=== PATIENT | male | born 1940 | race Caucasian/White ===

== ENCOUNTER 2016-06-05 23:52 | Emergency (ER) | payer MEDICARE, BC ==
--- NOTE | ~2016-06-05 | EKG ---
PATIENT: KELLY CHENG UNIT #: [id number] Ventricular Rate: 59 BPM Atrial Rate: 59 BPM P-R Interval: 176 ms QRS Duration: 104 ms Q-T Interval: 446 ms QTC Calculation(Bezet): 441 ms P [place]: 29 degrees Calculated R [place]: 16 degrees Calculated T [place]: 54 degrees Diagnosis Line: Sinus bradycardia Diagnosis Line: Otherwise normal ECG Diagnosis Line: No previous ECGs available Diagnosis Line: Confirmed by SOLIS ARSHAD MD ([id number]) on Diagnosis Line: 06/08/2016 4:01:57 PM INTERPRETING MD: JEANCARLOS ALTAMIRANO
--- NOTE | ~2016-06-05 | CT71 ---
[facility] A Service of [facility] RADIOLOGY TEXT RESULTS PATIENT: KELLY CHENG LOCATION: [facility] : 38 UNIT #: [id number] AGE: [address]: Timothy Wilson MD SEX: M ORDER DR: [id number] [facility] [address] [place], [place] [address] [id number] E MR#: [id number] [facility] #: [id number] NAME: KELLY CHENG. : 1940 SEX: M STUDY DATE/TIME: 06/06/2016 01:56 UNIT: [facility] ROOM: STUDY DESCRIPTION: CT Head Wo Contrast Attending Physician: Timothy Wilson M.D. Ordering Physician: Timothy Wilson M.D. Primary Care Physician: Janine Stanley M.D. MEDICAL IMAGING REPORT This report is preliminary unless electronic signature is present EXAM Head CT, 06/06 at 01:56 INDICATION Shaking, tremors that started at 8 o'clock last night with associated left side headache. TECHNIQUE This CT exam was performed with one or more of the following radiation dose reduction techniques: automatic exposure control, adjustment of mA and/or kV according to patient size, and iterative reconstruction. COMPARISON No comparison. FINDINGS Axial images were obtained from the base to the vertex without contrast. There is generalized atrophy. Ventricular size and configuration are within normal limits. Advanced chronic small vessel ischemic changes are present in the white matter. Old lacunar infarcts are noted in the basal ganglia on both sides as well as in the left thalamus. No acute infarct or hemorrhage is seen. There are no masses. Atherosclerotic calcifications are present in the carotid siphons. No skull fracture is seen. Visualized paranasal sinuses and mastoid air cells are clear. IMPRESSION No acute findings in the brain. There is generalized atrophy with advanced chronic small vessel ischemic disease in the white matter. There are old lacunar infarcts in both basal ganglia and in the left thalamus. Dictated by... Timothy Dao Jr., M.D. [facility] A Service of [facility] RADIOLOGY TEXT RESULTS PATIENT: KELLY CHENG [id number] : 38 UNIT #: [id number] AGE: [address]: Timothy Wilson MD SEX: M ORDER DR: THIS IS AN ELECTRONICALLY VERIFIED REPORT Timothy Dao Jr., M.D. at 06/06/2016 9:32 PM Barry TD: 06/06/2016 16:17 JOB #: [id number] MEDICAL IMAGING REPORT COPY
[~2016-06-05 23:52] MED LIST: ASCORBIC ACID500 M2 PO; B COMPLEX1 TAB PO; BUFFERIN 81 MG81 MG PO; CALCIUM 600 + D1 TAB PO; GLUCOSAMINE 1,51 CA1 PO; METOPROLOL TAR25 MG PO; NORVASC PO; RENAL SOFTGEL1 MG PO; SIMVASTATIN40 MG PO; SODIUM BICARBO650 MG PO; STOOL SOFTENER PO; [UNRECOGNIZED DRUG - OTHER] PO
[2016-06-06 00:13] LABS: POC - CKMB <1.0 ng/mL (0.0-7.9); POC - TROPONIN <0.05 ng/mL (<=0.05)
[2016-06-06 00:40] LABS: BASOPHIL# 0.1 X10e3 (0-0.3); EOSINOPHIL# 0.2 X10e3 (0-0.7); EOSINOPHIL% 3.1 % (0.0-7.0); HEMATOCRIT 38.3 % (38.0-50.0); HEMOGLOBIN 12.8 gm/dL (13.0-16.0); LYMPHOCYTE# 1.7 X10e3 (1.0-3.5); LYMPHOCYTE% 31.8 % (17.0-45.0); MEAN CELL VOLUME 96.7 FL (83-96); MEAN CORPUSCULAR HEMOGLOBIN 32.3 PG (28-34); MEAN CORPUSCULAR HGB CONC 33.4 g/dL (30-36); MEAN PLATELET VOLUME 7.6 FL (6.5-11.5); MONOCYTE# 0.6 X10e3 (0-1.0); MONOCYTE% 11.9 % (3.0-12.0); NEUTROPHIL# 2.8 X10e3 (1.5-7.1); NEUTROPHIL% 52.2 % (40-75); PLATELET COUNT 135 X10e3 (140-420); RED BLOOD COUNT 3.96 X10e (3.90-5.60); RED CELL DISTRIBUTION WIDTH 15.7 % (11.0-15.5); WHITE BLOOD COUNT 5.3 X10e3 (4.0-10.5)
[2016-06-06 00:41] LABS: DIFF IND NO
[2016-06-06 00:48] LABS: PARTIAL THROMBOPLASTIN TIME 25.5 SECONDS (23.5-31.3); PROTHROMBIN TIME (PATIENT) 10.4 SECONDS (9.6-11.5)
[2016-06-06 01:19] LABS: BILIRUBIN, DIRECT 0.1 mg/dL (0.0-0.2); BILIRUBIN,INDIRECT 0.9 mg/dL (0.0-0.9); BUN/CREATININE RATIO 17.05; CALCIUM SERUM 9.3 mg/dL (8.4-10.2); CREATININE SERUM 1.7 mg/dL (0.6-1.4); GLOM FILT RATE Estimated 41.6 mL/min (>60); POTASSIUM 3.4 mmol/L (3.5-5.1); PROTEIN TOTAL SERUM 6.9 g/dL (6.0-8.3)
[2016-06-06 01:27] LABS: MAGNESIUM 2.3 mg/dL (1.6-3.0); PHOSPHOROUS 3.5 mg/dL (2.5-4.6)
[2016-06-06 02:31] LABS: URINE SOURCE CLEAN CATCH
[2016-06-06 02:52] LABS: URINE APPEARANCE CLEAR; URINE BILIRUBIN NEG (NEG); URINE BLOOD NEG (NEG); URINE COLOR YELLOW; URINE GLUCOSE NEG (NEG); URINE KETONE NEG (NEG); URINE LEUKOCYTE ESTERASE NEG (NEG); URINE NITRATE NEG (NEG); URINE PROTEIN 2+ (NEG); URINE SPECIFIC GRAVITY 1.018 (1.003-1.035); URINE UROBILINOGEN 0.2 MG/DL (NEG)
[2016-06-06 02:57] LABS: URBCS1 AUWI 0-2 /[HPF] (0-2); URINE BACTERIA AUWI NEG (NEGATIVE); URINE SQUAMOUS EPITHELIAL CELL NONE SEEN /[HPF]; UWBCS1 AUWI 0-2 (0-5)
[2016-06-06 02:58] LABS: CULTURE INDICATED? NO
[2016-06-09 06:25] LABS: CALCIUM (PTHINTACT) 9.6 mg/dL (8.6-10.3)
== END 2016-06-06 02:51 | disposition home or self-care (01) ==
LOC: CED 23:52
PROVIDERS: Emergency Medicine
DX: G25.2 Other specified forms of tremor (principal); I48.91 Unspecified atrial fibrillation
CPT/HCPCS: 36415; 70450; 80048; 80076; 81003; 82310; 82330; 82550; 82553; 83735; 83970; 84100; 84484; 85025; 85610; 85730; 93005; 96360; 99284

== ENCOUNTER 2016-08-29 06:27 | Inpatient (IN) | payer MEDICARE, BC ==
--- NOTE | ~2016-08-29 | EKG ---
PATIENT: KELLY CHENG UNIT #: [id number] Ventricular Rate: 70 BPM Atrial Rate: 70 BPM P-R Interval: 152 ms QRS Duration: 100 ms Q-T Interval: 472 ms QTC Calculation(Bezet): 509 ms P [place]: 36 degrees Calculated R [place]: 48 degrees Calculated T [place]: 45 degrees Diagnosis Line: Normal sinus rhythm Diagnosis Line: Nonspecific ST and T wave abnormality Diagnosis Line: Prolonged QT Diagnosis Line: Abnormal ECG Diagnosis Line: When compared with ECG of 29-AUG-2016 19:10, Diagnosis Line: (unconfirmed) Diagnosis Line: Premature ventricular complexes is no longer Diagnosis Line: Present Diagnosis Line: Confirmed by CAMPOS RIOS MD ([id number]) on Diagnosis Line: 08/31/2016 5:23:30 PM INTERPRETING MD: ELA
--- NOTE | ~2016-08-29 | EKG ---
PATIENT: KELLY CHENG UNIT #: [id number] Ventricular Rate: 76 BPM Atrial Rate: 76 BPM P-R Interval: 156 ms QRS Duration: 98 ms Q-T Interval: 430 ms QTC Calculation(Bezet): 483 ms P [place]: 35 degrees Calculated R [place]: 48 degrees Calculated T [place]: 57 degrees Diagnosis Line: Sinus rhythm with with PVC's Diagnosis Line: Prolonged QT Diagnosis Line: Abnormal ECG Diagnosis Line: When compared with ECG of 29-AUG-2016 14:12, Diagnosis Line: (unconfirmed) Diagnosis Line: PVC's present Diagnosis Line: Confirmed by CAMPOS RIOS MD ([id number]) on Diagnosis Line: 08/31/2016 5:21:45 PM INTERPRETING MD: ELA
--- NOTE | ~2016-08-29 | EKG ---
PATIENT: KELLY CHENG UNIT #: [id number] Ventricular Rate: 81 BPM Atrial Rate: 81 BPM P-R Interval: 154 ms QRS Duration: 104 ms Q-T Interval: 424 ms QTC Calculation(Bezet): 492 ms P [place]: 14 degrees Calculated R [place]: 37 degrees Calculated T [place]: 52 degrees Diagnosis Line: Normal sinus rhythm Diagnosis Line: Nonspecific ST abnormality Diagnosis Line: Prolonged QT Diagnosis Line: Abnormal ECG Diagnosis Line: When compared with ECG of 31-AUG-2016 06:06, Diagnosis Line: No significant change was found Diagnosis Line: Confirmed by CAMPOS RIOS MD ([id number]) on Diagnosis Line: 09/04/2016 9:46:33 AM INTERPRETING : ELA
--- NOTE | ~2016-08-29 | CR6 ---
[facility] A Service of [facility] RADIOLOGY TEXT RESULTS PATIENT: KELLY CHENG LOCATION: [facility] - : 38 UNIT #: [id number] AGE: [address]: Seema Jefferson MD SEX: M ORDER DR: [id number] [facility] [address] [place], [place] [address] [id number] I MR#: [id number] Acc #: [id number] NAME: KELLY CHENG. : 1940 SEX: M STUDY DATE/TIME: 09/08/2016 6:19 UNIT: [address] ROOM: [facility] STUDY DESCRIPTION: CR Abdomen Portable Sng View Attending Physician: Seema Jefferson M.D. Ordering Physician: Seema Jefferson M.D. Primary Care Physician: Janine Stanley M.D. MEDICAL IMAGING REPORT This report is preliminary unless electronic signature is present EXAM Portable abdomen, 09/08/2016 HISTORY Dobbhoff tube placement today. COMPARISON Abdomen, 09/06/2016 FINDINGS Frontal supine abdomen demonstrates a weighted enteric feeding tube with tip projecting over the mid body of the stomach. Visualized bowel gas pattern nonobstructive. IMPRESSION Weighted enteric feeding tube tip projects over the mid body of the stomach. Dictated by... Phil Alicia M.D. THIS IS AN ELECTRONICALLY VERIFIED REPORT Phil Alicia M.D. at 09/08/2016 3:24 PM Victorino TD: 09/08/2016 08:24 JOB #: [id number] MEDICAL IMAGING REPORT Page 1 of 1 COPY
--- NOTE | ~2016-08-29 | CR72 ---
[facility] A Service of [facility] RADIOLOGY TEXT RESULTS PATIENT: KELLY CHENG LOCATION: [place] [address] : 38 UNIT #: [id number] AGE: [address]: Parminder Sandoval MD SEX: M ORDER DR: [id number] [facility] [address] [place], [place] [address] [id number] I MR#: [id number] Acc #: [id number] NAME: KELLY CHENG. : 1940 SEX: M STUDY DATE/TIME: 09/01/2016 4:31 UNIT: [facility] ROOM: [facility] STUDY DESCRIPTION: CR Chest Single View Portable Attending Physician: Parminder Sandoval M.D. Ordering Physician: Stephon Liu M.D. Primary Care Physician: Janine Stanley M.D. MEDICAL IMAGING REPORT This report is preliminary unless electronic signature is present EXAM Portable chest INDICATION Respiratory failure PROCEDURE Frontal view chest COMPARISON 08/31/2016 FINDINGS Probably stable heart size. Persistent vascular congestion, perihilar opacity and bilateral pleural effusions. The ET tube is unchanged. There is no pneumothorax. IMPRESSION Stable when allowing for differences in technique. Dictated by... Deon Degroot M.D. THIS IS AN ELECTRONICALLY VERIFIED REPORT Deon Degroot M.D. at 09/01/2016 10:13 PM RENEE/yvette TD: 09/01/2016 10:06 JOB #: [id number] MEDICAL IMAGING REPORT Page 1 of 1 COPY
--- NOTE | ~2016-08-29 | DS ---
Unit #: [id number] #: [id number] Patient: KELLY CHENG [id number] [address] [address] [id number] I MR#: [id number] NAME: KELLY CHENG ROOM: 328 Age: 76 Sex: M Admission Date: 08/29/2016 : 1940 Discharge Date: 09/13/2016 Attending Physician: Seema Jefferson M.D. Primary Care Physician: Janine Stanley M.D. DISCHARGE SUMMARY FINAL DIAGNOSES 1. Acute hypoxic respiratory failure with history of intubation during hospitalization. Patient has been extubated and is doing well. 2. Bilateral pneumonia. 3. Diastolic congestive heart failure. 4. Left ventricular ejection fraction of 55%. 5. Severe mitral regurgitation. 6. Acute non-Q wave myocardial infarction. 7. Paroxysmal atrial fibrillation. 8. Streptococcus viridans bacteremia. 9. Mitral valve endocarditis. 10. Sgeme-cq-ujeaxps kidney disease. 11. Urinary retention, status post dilatation for urethral stricture with a catheter in place. 12. Hypokalemia. 13. Anemia. 14. Obstructive sleep apnea, on CPAP as tolerated. 15. History of dementia. 16. Benign prostatic hypertrophy. 17. Former smoker. DISCHARGE MEDICATIONS 1. Metoprolol 50 mg p.o. t.i.d. 2. Aricept 10 mg daily. 3. Simvastatin 20 mg daily. 4. Aspirin 81 mg daily. 5. Renvela 800 mg q.6 h. Must be diluted in 30 mL of water. Stir vigorously to suspend powder. 6. Protonic 40 mg daily. 7. Albuterol and ipratropium nebulizer treatment q.i.d. and q.4 h. p.r.n. 8. Tylenol 650 q.4 h. p.r.n. 9. Lovenox 40 mg subcu daily. 10. Ambien 2.5 mg q.h.s. p.r.n. for sleeping. 11. Cardizem 60 mg q.6 h. 12. Potassium 40 mEq q.12 h. Hold potassium for level more than 4.5. 13. IV ceftriaxone 2 g q.24 h. till 09/25/16. CONSULTATIONS DURING HOSPITALIZATION 1. Dr. Ramos from urology services. 2. Dr. Galan and Dr. Lafleur from cardiology services. 3. Dr. Epps from renal services. 4. Dr. Nigel Rivera from pulmonary services. Unit #: [id number] #: [id number] Patient: KELLY CHENG 5. Dr. Beaver from infectious disease services. DIAGNOSTIC STUDIES LABORATORY WORKUP: On discharge sodium 141, potassium 4.3, chloride 112, BUN 33, creatinine 1.9, calcium 8.5. CBC shows WBC 4.8, hemoglobin 8.3, hematocrit 26.1 and platelet count of 139. Occult blood in the stool was negative. C. diff in the stool was negative. IMAGING: Please note patient has had multiple imaging studies during hospitalization as he was intubated and has had a lengthy stay. Most recent studies done: CT scan of the head without contrast was done today, this morning, because of the fall. Patient has a hematoma on the right forehead. There was no definite acute intracranial abnormality identified. Severe generalized atrophy with evidence of chronic microvascular disease and old left thalamic and lacunar infarct has been seen, right frontal scalp hematoma. Shoulder x-ray was also done which shows mild AC joint arthropathy. No acute finding. HOSPITAL COURSE Mr. Kelly Cheng is a 76-year-old male who has had very lengthy stay, was admitted on August [address] Sandoval with acute respiratory failure. Patient was admitted to ICU and he stayed in ICU for a long period of time. Started on broad spectrum IV antibiotics. Dr. Nigel Rivera evaluated the patient. Vent support was done per his recommendation for adequate oxygenation and ventilation. Bicarb drip was also started for metabolic acidosis. Patient has completed the course of antibiotic for pneumonia. His oxygenation has improved. Patient is being discharged to rehab. Patient was seen by Cardiology for possible congestive heart failure. This was a new onset heart failure. Patient does have history of paroxysmal atrial fibrillation. Patient was diagnosed with acute non-Q CA. Diuretics were adjusted. Patient is forced to have cardiac cath done but the patient's had decided to wait until he has completed the course of antibiotic. The patient did have mitral valve vegetation. Patient is on IV Rocephin. Infectious Disease was consulted and antibiotic has been adjusted as per his recommendation. He will continue to need antibiotic till 09/25/2016. Patient has an appointment with Dr. Galan on November 09 at 12:30. Patient needs to be on Lovenox 40 mg subcu daily. He was on 80 mg but because of low hemoglobin that dose has been decreased. On admission patient did have urinary retention and urethral stricture. Dr. Ramos was consulted. Patient had dilatation done and catheter placed. As per urology recommendation, leave current catheter until fully ambulatory and improved. When catheter is removed close followup of voiding needs to be done. Patient did have obcmp-fr-vbskcvm kidney disease. Dr. Epps was consulted. Patient's renal functions have improved a lot. On September 06 the patient's BUN was 99 and creatinine was 1.9. On discharge the patient's BUN is 33 and creatinine 1.9. Need to continue to monitor his renal functions. Patient does need to continue fall precaution. Unit #: [id number] #: [id number] Patient: KELLY CHENG PHYSICAL EXAMINATION VITAL SIGNS: On discharge blood pressure is 127/67, respiratory rate 18, pulse is 59, temperature 98.1, oxygen saturation is 97%. CHEST: Has fair air entry. CVS: S1 and S2 positive. Regular rhythm. ABDOMEN: Soft. Patient does have right scalp hematoma and ecchymosis. DISCHARGE INSTRUCTIONS 1. Patient is being discharged home to rehab in stable condition. 2. Medication as per med rec. 3. Antibiotic IV Rocephin till 09/25/16. 4. Follow up with Dr. Galan November 09 at 12:30. 5. CBC and BMP in three days and continue to check potassium level and renal functions. As patient is on potassium that needs to be observed closely. 6. PT and OT at rehab. 7. Fall precautions. 8. Aspiration precaution. Dictated by... Seema Jefferson M.D. ZEINA/matthew TD: 09/13/2016 16:07 JOB #: [id number] DISCHARGE SUMMARY Page 1 of 1 X Seema Jefferson MD X DISCHARGE SUMMARY
--- NOTE | ~2016-08-29 | CO ---
Unit #: [id number] #: [id number] Patient: KELLY CHENG [id number] [address] [place], [place] [address] [id number] I MR#: [id number] NAME: KELLY CHENG. ROOM: [facility] Age: 76 Sex: M Admission Date: 08/29/2016 : 1940 Attending Physician: Parminder Sandoval M.D. Primary Care Physician: Janine Stanley M.D. CONSULTATION REPORT REASON FOR CONSULTATION Congestive heart failure. HISTORY OF PRESENT ILLNESS This is a 76-year-old white male, who is known to Dr. Galan, who has a history of hypertension, hyperlipidemia, and bbasnmlw-hs-mcurkp mitral regurgitation that was found on echocardiogram in 2015. He has paroxysmal atrial fibrillation and is on anticoagulation with Eliquis. The patient presents to the emergency room with shortness of breath. He has dementia and is intubated; therefore, information has been obtained from the son, who is at bedside. According to the son for the past 2 days, the patient has been short of breath. Last night, his tried to convince him to come to the emergency room, but he declined. This morning at approximate 05:15 he was having such a hard time breathing, then EMS was eventually called. The son states his oxygen saturation level was low in the 60s. He was transferred to the emergency room. In the emergency room, the patient remained hypoxic and was subsequently intubated. The son also said the patient has not been eating as well as he should lately and has complained of being tired. Otherwise, no chest pain, palpitations, or dizziness. He had no leg edema. Chest x-ray found the patient to have pulmonary edema. After intubation, he was hypotensive and was placed on Levophed drip. Lactic acid elevated at 14.8. Troponin is 0.37. He is known to have anemia and his hemoglobin was 7.3. He was also found to be in acute kidney injury on chronic kidney disease, where his creatinine was also elevated at 2.8. PAST MEDICAL HISTORY 1. 2D echocardiogram on 01/05/2016 shows an ejection fraction of 60% with mild concentric left ventricular hypertrophy. Nllkfock-qc-wrjkix mitral regurgitation, rfgj-dw-dggzhnvl tricuspid regurgitation, and fxil-oa-cihhzzfh pulmonic valve regurgitation. Right ventricular systolic pressure of 32 mmHg. 2. Adenosine Cardiolite stress test on 01/27/2009 shows an ejection fraction of 50%. There was artifact attenuation in inferior wall, but no ischemia. 3. Pericarditis questionable secondary to hydralazine. 4. Paroxysmal atrial fibrillation, on anticoagulation with Eliquis. 5. Hypertension. 6. Hyperlipidemia. 7. Obstructive sleep apnea. 8. Chronic kidney disease. 9. Anemia. 10. Dementia. 11. BPH. Unit #: [id number] #: [id number] Patient: KELLY CHENG 12. Former smoker. PAST SURGICAL HISTORY 1. Cholecystectomy. 2. Tonsillectomy. 3. TURP. 4. Appendectomy. 5. Bilateral cataract extraction. 6. Prostate surgery. SOCIAL HISTORY The patient lives with and is cared for by his mother. He quit smoking more than 30 years ago. There is no history of illicit drug or alcohol use. FAMILY HISTORY Noncontributory. ALLERGIES Augmentin, amoxicillin, hydralazine. HOME MEDICATIONS Atrovent nasal spray 2 sprays each nostril q.i.d. p.r.n., amlodipine 5 mg daily, Eliquis 2.5 mg b.i.d., Lopressor 50 mg b.i.d., Aricept 10 mg daily, simvastatin 20 mg daily, ProAir HFA 90 mcg q.i.d. p.r.n. REVIEW OF SYSTEMS Unable to obtain, because the patient is currently intubated. PHYSICAL EXAMINATION VITAL SIGNS: Blood pressure is 156/68, heart rate is 106, temperature 98.9, BMI 22. GENERAL: This is a well-developed 76-year-old elderly white male, who is in no acute respiratory distress. He is currently intubated. NECK: Trachea is midline. No thyromegaly or lymphadenopathy. He has jugular venous distention of 5 cm. HEART: S1 and S2. Heart sounds are distant. No murmurs. No rubs or clicks. Regular rate and rhythm. LUNGS: With crackles in both lung bases with diminished breath sounds throughout. ABDOMEN: Soft and nontender with bowel sounds are diminished. EXTREMITIES: Without leg edema. SKIN: Pale and dry. DIAGNOSTIC STUDIES LABORATORY RESULTS: Glucose 287, BUN 45, creatinine 2.8, sodium 138, potassium 4.1. CK total 217, troponin 3.20 from 0.37. BNP, pending. Lactic acid 14.8. White count 23.0, hemoglobin 7.3, hematocrit 26.2, and platelet count is 263. IMAGING STUDIES: Chest x-ray consistent with pulmonary edema. CARDIOVASCULAR STUDIES: EKG; sinus tachycardia with a rate of 131 beats per minute with [address] depression in the lateral leads up to 2 mm. IMPRESSION 1. Acute hypoxic respiratory failure. 2. Acute on chronic kidney disease. Unit #: [id number] #: [id number] Patient: KELLY CHENG 3. Acute new onset heart failure. 4. Paroxysmal atrial fibrillation, currently in normal sinus rhythm. 5. Anemia questionable of chronic disease. 6. Transient hypotension. 7. Hyperlipidemia. 8. Dementia. 9. Valvular heart disease with waumhkcy-co-ivinpj mitral regurgitation and yfvs-ve-ymrharux tricuspid regurgitation. PLAN 1. Cardiology was consulted for questionable congestive heart failure. The patient had normal left ventricular systolic function with no evidence of heart failure on past echoes. His ejection fraction was normal. He had pjfzdpqy-cg-gzrfcc mitral regurgitation. The severity of the mitral valve could have worsened. We will recheck a 2D echocardiogram. 2. Continue to monitor troponin. We will discuss with the family about plans in the future. 3. Ventilator support. 4. Wean dopamine as blood pressure tolerates. 5. We will follow the patient with you. Thank you for allowing us to assist with this patient's care. Dictated by... Nael Toney/alison TD: 08/30/2016 01:50 JOB #: [id number] CC: Janine Stanley M.D. CONSULTATION REPORT Page 1 of 1 X Flavio Meyers APRN X CONSULTATION REPORT
--- NOTE | ~2016-08-29 | CR170 ---
[facility] A Service of [facility] RADIOLOGY TEXT RESULTS PATIENT: KELLY CHENG LOCATION: [facility] - : 38 UNIT #: [id number] AGE: [address]: Seema Jefferson MD SEX: M ORDER DR: [id number] [facility] [address] [place], [place] [address] [id number] I MR#: [id number] Acc #: [id number] NAME: KELLY CHENG. : 1940 SEX: M STUDY DATE/TIME: 09/12/2016 10:16 UNIT: [address] ROOM: [facility] STUDY DESCRIPTION: CR Knee 2 Views Rt Attending Physician: Seema Jefferson M.D. Ordering Physician: Seema Jefferson M.D. Primary Care Physician: Janine Stanley M.D. MEDICAL IMAGING REPORT This report is preliminary unless electronic signature is present EXAM Right knee 2 views, 09/12/2016 COMPARISON STUDIES None. HISTORY Fell yesterday with knee pain. FINDINGS AP and lateral views are obtained. Bony elements are intact and in normal aligned with no fractures identified. The patient does have advanced atherosclerotic disease in the popliteal and distal superficial femoral artery and trifurcation vessels. CONCLUSION Negative right knee. Dictated by... Giacomo Lewis M.D. THIS IS AN ELECTRONICALLY VERIFIED REPORT Giacomo Lewis M.D. at 09/16/2016 7:15 AM KIARRA/bernard TD: 09/12/2016 20:25 JOB #: [id number] MEDICAL IMAGING REPORT Page 1 of 1 COPY
--- NOTE | ~2016-08-29 | CR7 ---
[facility] A Service of [facility] RADIOLOGY TEXT RESULTS PATIENT: KELLY CHENG LOCATION: [address] : 38 UNIT #: [id number] AGE: [address]: Seema Jefferson MD SEX: M ORDER DR: [id number] [facility] [address] [place], [place] [address] [id number] I MR#: [id number] Acc #: [id number] NAME: KELLY CHENG. : 1940 SEX: M STUDY DATE/TIME: 09/06/2016 16:12 UNIT: [facility] ROOM: [facility] STUDY DESCRIPTION: CR Abdomen Single AP View Attending Physician: Seema Jefferson M.D. Ordering Physician: Seema eJfferson M.D. Primary Care Physician: Janine Stanley M.D. MEDICAL IMAGING REPORT This report is preliminary unless electronic signature is present EXAM Portable abdomen HISTORY Dobbhoff tube placement. FINDINGS Portable radiograph of the abdomen for Dobbhoff tube placement demonstrates the feeding tube tip is at the level of the gastric fundus, 5 cm beyond the EG junction. The tube could be advanced an additional 10-15 cm for improved positioning in the stomach. The visualized bowel gas pattern is normal. Exam does not include the left lateral abdomen or the mid- and lower pelvis. Dictated by... Leander Carlos M.D. THIS IS AN ELECTRONICALLY VERIFIED REPORT Leander Carlos M.D. at 09/06/2016 11:50 PM DFL/pcl TD: 09/06/2016 21:01 JOB #: [id number] MEDICAL IMAGING REPORT Page 1 of 1 COPY
--- NOTE | ~2016-08-29 | FU ---
[facility] Nutrition Therapy DATE: 09/09/16 Patient: KELLY CHENG Physician: PAM Address: [address] Room/Bed: [address] [place] [address], Zip: [place] [address] Admit Date: 08/29/16 Date of : 38 Height: 6 2 Weight: 155 70.6 NUTRITION MONITORING/FOLLOW-UP: Reason: FOLLOW UP Anthropometrics: Wt: 70.6 kg Labs: BUN 57 Creat 1.7 Accuchecks 103-109 GFR 37.8 Meds: Lopressor, lipitor, novolog, protonix, NaCl I&O's: , last BM 09/09 Skin: Bruising BUE Redness to buttocks No edema noted Diet: Mechanical soft with ground meats/ NDD2/ thin liquids Assessment: Chart reviewed, events noted. Pt's diet advanced and enteral nutrition was discontinued yesterday. RN reports that the pt is eating well. RD spoke with the pt and his at bedside. Pt's reports that he has been consuming ~50% of meals and 50% of Ensure supplements. RD encouraged increased intake of solid food, and supplement intake when intake of solid food is inadequate. Pt and his agreed, and denied having any questions regarding the pt's diet. Of note, the pt has been feeding himself today. Renal function is improving per labs and RN report. Nutrition problem remains with improvements. See updated evidence. Dx: Inadequate protein-energy intake RT clinical diagnosis AEB 50% intake of meals, CARDIAC EXERCISE PHYSIOLOGIST evaluation- ACTIVE/ IN PROGRESS Intervention: 1. Ensure vanilla BID 2. Diet per CARDIAC EXERCISE PHYSIOLOGIST Monitoring, Evaluation and Goals: 1. EN- NO LONGER RELEVANT (TFS D/C'D) 2. Oral intake- Improved/ In progress NEW GOALS: [facility] Nutrition Therapy DATE: 09/09/16 Patient: KELLY CHENG Physician: PAM Address: [facility] Room/Bed: [address] [place] [address], Zip: [place] [address] Admit Date: 08/29/16 Date of : 38 Height: 6 2 Weight: 155 70.6 1. Oral intake; tolerate >50% of meals and supplements 2. Weight; prevent unintentional weight loss 3. Improve labs; BUN, creat, GFR Recommendations: 1. Continue to advance diet per CARDIAC EXERCISE PHYSIOLOGIST recommendations. 2. Continue Ensure vanilla BID for supplemental nutrition. 3. Appreciate staff and family encouraging and assisting with intake as needed. Status: Pt is at mild nutritional risk. RD will follow per protocol. Respectfully, AMARILIS HELTON RD, LD Food and Nutritional Services [facility] cc: client file
--- NOTE | ~2016-08-29 | CR72 ---
[facility] A Service of [facility] & [facility] RADIOLOGY TEXT RESULTS PATIENT: KELLY CHENG LOCATION: [place] [address] : 38 UNIT #: [id number] AGE: [address]: Parminder Sandoval MD SEX: M ORDER DR: [id number] [facility] [address] [facility]. [place], [place] [address] [id number] I MR#: [id number] Acc #: [id number] NAME: KELLY CHENG. : 1940 SEX: M STUDY DATE/TIME: 08/31/2016 3:19 UNIT: [facility] ROOM: [facility] STUDY DESCRIPTION: CR Chest Single View Portable Attending Physician: Parminder Sandoval M.D. Ordering Physician: Stephon Liu M.D. Primary Care Physician: Janine Stanley M.D. MEDICAL IMAGING REPORT This report is preliminary unless electronic signature is present EXAM Portable chest INDICATION Respiratory failure PROCEDURE Frontal view chest COMPARISON 08/30/2016 FINDINGS Heart size unchanged. Perihilar opacities are stable. Bilateral pleural effusions are new or increased from the prior. ET tube unchanged. No visualized pneumothorax. IMPRESSION Small bilateral pleural effusions are new compared with the previous study. Otherwise stable. Dictated by... Deon Degroot M.D. THIS IS AN ELECTRONICALLY VERIFIED REPORT Deon Degroot M.D. at 08/31/2016 9:53 PM RENEE/yvette TD: 08/31/2016 08:58 JOB #: [id number] MEDICAL IMAGING REPORT Page 1 of 1 COPY
--- NOTE | ~2016-08-29 | CR230 ---
[facility] A Service of [facility] & [facility] RADIOLOGY TEXT RESULTS PATIENT: KELLY CHENG LOCATION: [facility] : 38 UNIT #: [id number] AGE: [address]: Seema Jefferson MD SEX: M ORDER DR: [id number] [facility] [address] [facility] [address]. [place], [place] [address] [id number] I MR#: [id number] Acc #: [id number] NAME: KELLY CHENG. : 1940 SEX: M STUDY DATE/TIME: 09/13/2016 6:20 UNIT: [address] ROOM: [facility] STUDY DESCRIPTION: CR Shoulder Min 2 View Rt Attending Physician: Seema Jefferson M.D. Ordering Physician: Parminder Sandoval M.D. Primary Care Physician: Janine Stanley M.D. MEDICAL IMAGING REPORT This report is preliminary unless electronic signature is present EXAM Right shoulder 3 views. HISTORY Fell out of bed this morning. Shoulder pain. FINDINGS Three views of the right shoulder demonstrates no fracture or dislocation. Mild AC joint arthropathy. Right extremity PICC line terminates mid SVC. The visualized right thorax and soft tissues unremarkable. IMPRESSION Mild AC joint arthropathy. No acute findings. Incidental note of right extremity PICC line. Dictated by... Jeanne Edwards M.D. THIS IS AN ELECTRONICALLY VERIFIED REPORT Jeanne Edwards M.D. at 09/13/2016 3:55 PM KISHORE/rakesh TD: 09/13/2016 10:19 JOB #: [id number] MEDICAL IMAGING REPORT Page 1 of 1 COPY
--- NOTE | ~2016-08-29 | CR72 ---
[facility] A Service of [facility] & [facility] RADIOLOGY TEXT RESULTS PATIENT: KELLY CHENG LOCATION: [place] [address] : 38 UNIT #: [id number] AGE: [address]: Seema Jefferson MD SEX: M ORDER DR: [id number] [facility] [address] [facility]. [place], [place] [address] [id number] I MR#: [id number] Acc #: [id number] NAME: KELLY CHENG. : 1940 SEX: M STUDY DATE/TIME: 09/03/2016 5:08 UNIT: [facility] ROOM: [facility] STUDY DESCRIPTION: CR Chest Single View Portable Attending Physician: Parminder Sandoval M.D. Ordering Physician: Stephon Liu M.D. Primary Care Physician: Janine Stanley M.D. MEDICAL IMAGING REPORT This report is preliminary unless electronic signature is present EXAM Portable chest. INDICATION Respiratory failure, follow up. PROCEDURE Frontal view chest. COMPARISON 09/02/2016 FINDINGS Heart size unchanged. Persistent bibasilar opacity and pleural fluid. No visible pneumothorax. ET tube is unchanged. IMPRESSION Stable Dictated by... Deon Degroot M.D. THIS IS AN ELECTRONICALLY VERIFIED REPORT Deon Degroot M.D. at 09/06/2016 7:21 AM RENEE/mary TD: 09/03/2016 10:04 JOB #: [id number] MEDICAL IMAGING REPORT Page 1 of 1 COPY
--- NOTE | ~2016-08-29 | EKG ---
PATIENT: KELLY CHENG UNIT #: [id number] Ventricular Rate: 131 BPM Atrial Rate: 129 BPM QRS Duration: 102 ms Q-T Interval: 308 ms QTC Calculation(Bezet): 454 ms Calculated R [place]: 38 degrees Calculated T [place]: -170 degrees Diagnosis Line: Sinus tachycardia Diagnosis Line: ST and T wave abnormality, consider lateral ischemia Diagnosis Line: Abnormal ECG Diagnosis Line: When compared with ECG of 29-AUG-2016 07:13, Diagnosis Line: (unconfirmed) Diagnosis Line: No significant change was found Diagnosis Line: Confirmed by ROSMERY POTTER MD ([id number]) on Diagnosis Line: 08/30/2016 9:39:24 PM INTERPRETING MD: TARIQ ALTAMIRANO
--- NOTE | ~2016-08-29 | FU ---
[facility] Nutrition Therapy DATE: 09/02/16 Patient: KELLY CHENG Physician: PAM Address: [address] Room/Bed: [address], Zip: [place] [address] Admit Date: 08/29/16 Date of : 38 Height: 6 2 Weight: 191 87 NUTRITION MONITORING/FOLLOW-UP: Reason: PT SEEN FOR FOLLOW-UP/ENTERAL NUTRITION SUPPORT DX: PNA, SEPSIS, BILLY Anthropometrics: 5'9", WT: 189# (86 KG), BMI: 27.9 -ADMIT WEIGHT: 176# Labs: BUN: 64, CREAT: 2.7, ALB: 2.4, AST: 44, PHOS: 4.8 (ELEVATED) Meds: PROPOFOL, PROTONIX, LOPRESSOR, FUROSEMIDE, PROTONIX, NOVOLOG I&O's: 9239/8750 Skin: NO KNOWN SKIN ISSUES Estimated Nutrition Needs: 2110-5172 KCAL 96-120 G PRO (1.2-1.5 G PRO/KG BW 2' PT ON HD) Assessment: CHART REVIEWED AND EVENTS NOTED. PT CONTINUES TO BE INTUBATED AND SEDATED AT TIME OF VISIT (PT RECEIVING PROPOFOL AT 19.7 ML/HR PROVIDING ~520 KCAL FROM LIPIDS). PER RN AND CHART, PLANS IN PLACE FOR WEAN PROTOCOL TOMORROW AM. OF NOTE, PT RECEIVING ENTERAL NUTRITION SUPPORT OF NEPRO @ 20 ML/HR VIA DHT. PT TOLERATING EN PER RN AND CHART. FAMILY IN ROOM REPORTED NO DIET QUESTIONS AT THIS TIME. RD TO CONTINUE TO FOLLOW. Dx: INADEQUATE PROTEIN-ENERGY INTAKE R/T CURRENT DIAGNOSIS, VENT DEPENDENCE AEB NPO STATUS.-ACTIVE/RESOLVED. NEW DX: INADEQUATE PROTEIN-ENERGY INTAKE R/T CURRENT DIAGNOSIS, VENT DEPENDENCE AEB PT RECEIVING ENTERAL NUTRITION SUPPORT. Intervention: 1. ENTERAL NUTRITION Monitoring, Evaluation and Goals: 1. ENTERAL NUTRITION; PROVIDE >80% ESTIMATED NUTRIENT NEEDS-NOT MET/IN PROGRESS 2. LABS; WNL-IN PROGRESS 3. GI; PROMOTE REGULAR GI FUNCTION-IN PROGRESS 4. WEIGHTS; PREVENT WEIGHT LOSS-IN PROGRESS/ACTIVE MONITOR: -TF RATE/RESIDUALS -WEIGHTS [facility] Nutrition Therapy DATE: 09/02/16 Patient: KELLY CHENG Physician: PAM Address: [address] [place] [address] Room/Bed: [facility], Zip: [place] [address] Admit Date: 08/29/16 Date of : 38 Height: 6 2 Weight: 191 87 -LABS -EXTUBATION? Recommendations: 1. ONCE MEDICALLY FEASIBLE, IF PT CONTINUES TO RECEIVE PROPOFOL, RECOMMEND TO INCREASE CURRENT ENTERAL NUTRITION OF NEPRO TO GOAL RATE OF 40 ML/HR + SEDATION + SUGAR-FREE PROSTAT BID -TOTAL PROVIDES 2448 KCAL, 108 G PRO, 701 ML FREE H20 ADD FREE H20 FLUSHES PER MD 2. ONCE PROPOFOL D/C'D, ADVANCE CURRENT ENTERAL NUTRITION SUPPORT OF NEPRO TO GOAL RATE OF 55 ML/HR -PROVIDES 2376 KCAL, 107 G PRO, 964 ML FREE H20 ADD FREE H20 FLUSHES PER MD 3. ONCE PT EXTUBATED, ADVANCE DIET PER FINANCIAL SERVICES REP + HEALTHY HEART DIET RD WILL F/U PER PROTOCOL PT IS MOD/SEVERELY COMPROMISED Respectfully, TREVOR GREENE MS, RD, LD Food and Nutritional Services [facility] cc: client file
--- NOTE | ~2016-08-29 | CO ---
Unit #: [id number] #: [id number] Patient: KELLY CHENG [id number] [address] [place], [place] [address] [id number] I MR#: [id number] NAME: KELLY CHENG. ROOM: [facility] Age: 76 Sex: M Admission Date: 08/29/2016 : 1940 Attending Physician: Seema Jefferson M.D. Primary Care Physician: Janine Stanley M.D. Consultation Date: 09/09/2016 CONSULTATION REPORT REASON FOR CONSULTATION Urinary retention. HISTORY OF PRESENT ILLNESS This 76-year-old man is mildly confused this morning but reports that he had sudden difficulty urinating in the night. He states that he began to attempt to have a bowel movement and could not neither do that nor void and, due to persistent discomfort, his bladder was scanned as documented in the record showing 513 mL residual. Fortunately at instruction of Urology, a Coude catheter was able to be placed successfully. The patient reports no pain or complaints currently. His history is pertinent for a TUR of prostate [place] [address] Ramos performed cystoscopy, urethral dilation and Pickering catheter placement for a severe iatrogenic stricture on 08/29/16 earlier during this hospitalization. On examination, the patient's abdomen is flat, soft, nontender. No masses. There is blood around the Pickering catheter and the catheter was pushed back and will be secured to the leg. DIAGNOSTIC STUDIES LABORATORY: BUN 57, creatinine 1.7, remain improved. Hemoglobin 9.6. IMPRESSION 1. Recently dilated stricture. 2. Urinary retention likely multifactorial. PLAN We will leave current catheter again until after procedure, fully ambulatory and improved. We will culture the urine and follow with you. When catheter removed, close follow up of voiding indicated. Thank you for the reconsultation. Dictated by... Timothy Breaux M.D. LIBRA/rakesh TD: 09/09/2016 08:32 JOB #: [id number] Unit #: [id number] #: [id number] Patient: KELLY CHENG CONSULTATION REPORT Page 1 of 1 X Timothy Breaux MD CONSULTATION REPORT
--- NOTE | ~2016-08-29 | EKG ---
PATIENT: KELLY CHENG UNIT #: [id number] Ventricular Rate: 71 BPM Atrial Rate: 71 BPM P-R Interval: 150 ms QRS Duration: 92 ms Q-T Interval: 418 ms QTC Calculation(Bezet): 454 ms P [place]: 39 degrees Calculated R [place]: 66 degrees Calculated T [place]: 85 degrees Diagnosis Line: Normal sinus rhythm Diagnosis Line: Normal ECG Diagnosis Line: When compared with ECG of 04-SEP-2016 16:40, Diagnosis Line: Sinus rhythm has replaced Atrial fibrillation Diagnosis Line: Vent. rate has decreased BY 41 BPM Diagnosis Line: Non-specific change in ST segment in Inferior Diagnosis Line: leads Diagnosis Line: ST no longer depressed in Lateral leads Diagnosis Line: T wave inversion no longer evident in Lateral Diagnosis Line: leads Diagnosis Line: Confirmed by CAMPOS RIOS MD ([id number]) on Diagnosis Line: 09/07/2016 10:15:48 PM INTERPRETING MD: ELA
--- NOTE | ~2016-08-29 | FU ---
[facility] Nutrition Therapy DATE: 09/07/16 Patient: KELLY CHENG Physician: PAM Address: [address] Room/Bed: [address], Zip: [place] [address] Admit Date: 08/29/16 Date of : 38 Height: 6 2 Weight: 165 75 NUTRITION MONITORING/FOLLOW-UP: Reason: PT SEEN FOR FOLLOW-UP/ENTERAL NUTRITION SUPPORT DX: SEPSIS, ENDOCARDITIS, BILLY Anthropometrics: 5'9", WT: 167# (76 KG), BMI: 24.7 -ADMIT WEIGHT: 176# Labs: GLU: 135, BUN: 96, CREAT: 2.1, ALB: 2.4, GFR: 29.3 Meds: LIPITOR, NOVOLOG, PROTONIX, NACL I&O's: 3620/2830, 4 BMs NOTED Skin: NO KNOWN SKIN ISSUES Estimated Nutrition Needs: 6217-1448 KCAL 96-120 G PRO Assessment: CHART REVIEWED AND EVENTS NOTED. PT SEEN FOR ENTERAL NUTRITION SUPPORT FOLLOW-UP. PT EXTUBATED AT TIME OF VISIT, RECEIVING ENTERAL NUTRITION SUPPORT OF NEPRO @ 55 ML/HR. PER RN AND CHART, PT TOLERATING ENTERAL NUTRITION. PER PUMP HISTORY, PT RECEIVING ~80% GOAL VOLUME PAST 24 HOURS. OF NOTE, ROAD INSPECTOR EVALED PT ON 09/06/16 AND DEEMED PT APPROPRIATE FOR DIET ADVANCEMENT-MECHANICAL SOFT + NDD2 + NECTAR THICK LIQUIDS. PT REPORTS "WANTING TO EAT". RD ENCOURAGED SLOWL GRADUAL PO INTAKE, PT AGREED TO ENSURE PUDDING BID, RD WILL ORDER. PT REPORTED NO DIET QUESTIONS AT THIS TIME. ?PLANS IN PLACE FOR PT TO TRANSFER TO TELEMETRY FLOOR. RD TO CONTINUE TO FOLLOW. Dx: INADEQUATE PROTEIN-ENERGY INTAKE R/T CURRENT DIAGNOSIS, VENT DEPENDENCE AEB PT RECEIVING ENTERAL NUTRITION SUPPORT.-RESOLVED/ACTIVE NEW DX: INADEQUATE PROTEIN-ENERGY INTAKE R/T CURRENT DIAGNOSIS AEB PT RECEIVING ENTERAL NUTRIITON SUPPORT, ROAD INSPECTOR FOLLOWING. Intervention: 1. ENTERAL NUTRITION 2. MECHANICAL SOFT + NDD2 + NECTAR THICK LIQUID 3. ENSURE PUDDING BID Monitoring, Evaluation and Goals: 1. ENTERAL NUTRITION; PROVIDE >80% ESTIMATED NUTRIENT NEEDS-MET/RESOLVED 2. WEIGHTS; PREVENT WEIGHT LOSS-IN PROGRESS 3. LABS; WNL-IN PROGRESS 4. GI; PROMOTE REGULAR GI FUNCTION-IN PROGRESS/ACTIVE [facility] Nutrition Therapy DATE: 09/07/16 Patient: KELLY CHENG Physician: PAM Address: [address] Room/Bed: [address], Zip: [place] [address] Admit Date: 08/29/16 Date of : 38 Height: 6 2 Weight: 165 75 NEW GOALS: 1. ORAL INTAKE; CONSUME AND TOLERATE >50% OF MEALS W/NO C/O N/V/D MONITOR: -TF RATE/RESIDUALS -TF D/C'D? -PO INTAKE/APPETITE -SUPPLEMENT INTAKE Recommendations: 1. PLEASE ORDER VANILLA ENSURE PUDDING BID W/MEALS 2. APPRECIATE FAMILY AND STAFF TO ENCOURAGE SLOW GRADUAL PO INTAKE- ADEQUATE INTAKE 3. CONTINUE CURRENT ENTERAL NUTRITION SUPPORT OF NEPRO @ 55 ML/HR, IF PO INTAKE <50% PLEASE D/C ENTERAL NUTRITION IF PO INTAKE >50% RD WILL F/U PER PROTOCOL PT IS MODERATELY COMPROMISED Respectfully, TREVOR GREENE MS, RD, LD Food and Nutritional Services [facility] cc: client file
--- NOTE | ~2016-08-29 | CO ---
Unit #: [id number] #: [id number] Patient: KELLY CHENG [id number] [address] [place], [place] [address] [id number] I MR#: [id number] NAME: KELLY CHENG. ROOM: [facility] Age: 76 Sex: M Admission Date: 08/29/2016 : 1940 Attending Physician: Parminder Sandoval M.D. Primary Care Physician: Janine Stanley M.D. CONSULTATION REPORT HISTORY OF PRESENT ILLNESS Mr. Cheng is a 76-year-old white male, who was seen in our office by Dr. Liu for sleep apnea who is maintained on positive pressure therapy. He apparently has had difficulty with a dry cough over the last month. He has not felt well. He has been more short of breath. Apparently in late July, he had a fever and was seen at Dr. Stanley's office and treated with antibiotics with Septra. His symptoms resolved. He was felt to have urinary tract infection. He was seen in our office about 4 days ago for sleep apnea. I do not have those records, but he had a cough and chest x-ray there showed no acute infiltrate. His saturations and blood pressure were okay. He was treated with a steroid shot and given an inhaler. He had no fever. He was not given any antibiotics. Apparently, he worsened and has had decreased eating, decreased p.o. intake, increased weakness, and decreased mental status, and came to the emergency room. In the emergency room, his initial O2 saturation was 67% on 100%. His blood pressure is 156/97, his pulse was 131, his temperature was 98.9. He was subsequently intubated. His blood pressure has fallen and he has been placed on Levophed. He has been given 2 L of fluid and he has been started on Rocephin and Zithromax and propofol. His chest x-ray shows bilateral infiltrates in a perihilar position. His lab work was significant for arterial blood gases, pH 7.08, pCO2 of 27, pO2 of 108 on assist control 16, respiratory rate 33, tidal volume 550, PEEP of 5, 100%. Chemistries were remarkable for creatinine of 2.8, glucose of 287, BUN of 45, sodium of 128, potassium 4.1, CO2 of 8, AST was 66. Lactic acid was 14.8. Coagulation studies are normal. White blood cell count was 23,000, hematocrit 26.2, last hematocrit in June was 38.3. Urinalysis was not done. EKG shows possible lateral ischemia. PAST MEDICAL HISTORY Significant for paroxysmal atrial fib, history of pericardial effusion, lupus-like symptoms with hydralazine, moderate mitral regurgitation, chronic renal failure, obstructive uropathy with BPH, hypertension, obstructive sleep apnea, maintained on positive pressure therapy, history of chronic hepatitis C infection. PAST SURGICAL HISTORY Cholecystectomy, polyp removal, appendectomy, tonsillectomy. ALLERGIES Hydralazine. HOME MEDICATIONS Atrovent nasal spray, amlodipine, Eliquis, Lopressor, donepezil, simvastatin, and ProAir. ProAir just added. Unit #: [id number] #: [id number] Patient: KELLY CHENG SOCIAL HISTORY Lives with . Nonsmoker. No alcohol. No illicit drugs. FAMILY HISTORY Negative for lung disease. REVIEW OF SYSTEMS Not possible just noted above. The patient intubated and sedated. PHYSICAL EXAMINATION VITAL SIGNS: Blood pressure is 126/78, pulse 101, temperature 98.9, respiratory rate 28. HEENT: Normocephalic, atraumatic. Pupils constricted, equal, round, reactive. Nonicteric. Orally intubated. NECK: Supple. Trachea midline. No cervical or supraclavicular lymphadenopathy. LUNGS: Reveal some crackles bilaterally. CARDIAC: Heart sounds distant. Regular rate and rhythm. Could not appreciate murmur, rub, or gallop. ABDOMEN: Nontender. Bowel sounds present. No hepatosplenomegaly. EXTREMITIES: Without clubbing, cyanosis, or edema. NEUROLOGIC: Sedated on vent. SKIN: Warm and dry. DIAGNOSTIC STUDIES LABORATORY RESULTS: As noted. IMPRESSION 1. Acute hypoxemic respiratory failure. 2. Metabolic acidosis with increased anion gap, lactic acidosis, and related to renal insufficiency. 3. Bilateral pulmonary infiltrates, pneumonia versus congestive heart failure less likely diffuse alveolar hemorrhage. 4. Acute on chronic kidney disease, probably related to volume depletion. 5. Paroxysmal atrial fibrillation, maintained on Eliquis. 6. 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 7. Obstructive sleep apnea, maintained on positive pressure therapy. 8. Anemia. PLAN Vent support adjustment to maintain adequate oxygenation and ventilation. We will start a bicarb drip for metabolic acidosis. We will treat with broad-spectrum antibiotics for community-acquired pneumonia. We will also add vancomycin cover for Staph. We will evaluate for myocardial infarction and coexistent CHF with cardiac enzymes, echocardiogram, and we will have Cardiology see. We will monitor H and H. We will also have Renal Service see. We will make further recommendations pending this. Dictated by... Adan Rivera M.D. SHASHA/alison TD: 08/30/2016 00:07 JOB #: [id number] CC: Janine Stanley M.D. Unit #: [id number] #: [id number] Patient: KELLY CHENG M.D. William O. Lacy, M.D. CONSULTATION REPORT Page 1 of 1 X Adan Rivera MD X CONSULTATION REPORT
--- NOTE | ~2016-08-29 | CR72 ---
[facility] A Service of [facility] RADIOLOGY TEXT RESULTS PATIENT: KELLY CHENG LOCATION: [place] [address] : 38 UNIT #: [id number] AGE: [address]: Seema Jefferson MD SEX: M ORDER DR: [id number] [facility] [address] [facility] [place], [place] [address] [id number] I MR#: [id number] Acc #: [id number] NAME: KELLY CHENG. : 1940 SEX: M STUDY DATE/TIME: 09/07/2016 5:28 UNIT: [facility] ROOM: [facility] STUDY DESCRIPTION: CR Chest Single View Portable Attending Physician: Seema Jefferson M.D. Ordering Physician: Stephon Liu M.D. Primary Care Physician: Janine Stanley M.D. MEDICAL IMAGING REPORT This report is preliminary unless electronic signature is present EXAM Portable chest INDICATION Follow up congestive heart failure, weakness, shortness of air, and sepsis for 9 days. COMPARISON 09/06/2016. FINDINGS Today's portable view of the chest shows no change in the Dobbhoff tube or Shiley catheter. There are low lung volumes with bibasilar atelectasis and the heart size is normal. Dictated by... Salvatore Valdez M.D. THIS IS AN ELECTRONICALLY VERIFIED REPORT Salvatore Valdez M.D. at 09/07/2016 3:54 PM KRISTI/epifanio TD: 09/07/2016 13:25 JOB #: [id number] MEDICAL IMAGING REPORT Page 1 of 1 COPY
--- NOTE | ~2016-08-29 | A ---
[facility] Nutrition Therapy DATE: 08/30/16 Patient: KELLY CHENG Physician: ALYCIA Address: [address] Room/Bed: [address], Zip: [place] [address] Admit Date: 08/29/16 Date of : 38 Height: 6 2 Weight: 176 80 NUTRITIONAL ASSESSMENT: REASON: CONSULT RE: DIETITIAN, AND NPO STATUS IN ICU 76 yo male admitted for sepsis, PNA PMH: Afib, BPH, TURP, HTN, anemia, CKD stage 3, hepatitis C, GODWIN, cholecystectomy, dementia Anthropometrics: Ht: 5'9" (per pt family and history in [facility]) Wt: 80 kg BMI: 26.0 Labs: Gluc 130 BUN 54 Creat 3.0 Ca++ 7.9 Alb 2.5 AST 70 Phos 5.6 Accuchecks 138 Trig 169 GFR 19.0 BNP 3312 Meds: Propofol @ 11 mL/hr, NaCl, Novolog, D5%, levophed, sodium bicarbonate, protonix I/O & Bowel function: 3739/1602, last BM 08/30, OG to suction, Brown liquid stool noted Skin Integrity: no breakdown noted Edema: BL lower legs 1+ Trunk- generalized Estimated Nutrition Needs: 3658-6440 kcals (25-30 kcals/kg) 80-96 grams protein (1.0-1.2 grams/kg) Assessment: Chart reviewed, events noted. Pt admitted for sepsis and PNA with heme positive stool and abdominal pain. Stool is being checked for C.diff. Pt has an OG tube to suction currently, and is sedated on the ventilator. No plans in place for nutrition support at this time. Of note, the pt has a h/o CKD stage 3 and currently elevated BUN, creatinine and Phos. Renal is following the pt, and RN reports that HD may be a possibility at some point. RD spoke with the pt's family members at bedside. Pt's ?son reports that the pt's usual body weight over the past year has been 165-175#, and that the most the pt has weighed is 185#. Pt's family believes he has been gradually losing weight due to advancing age and illness; however, they are unsure of exact amount and time frame. RD briefly explained enteral nutrition in the event that it is initiated. Please see recommendations below. Dx: Inadequate protein-energy intake RT clinincal condition, ventilator dependence AEB NPO status. Intervention: [facility] Nutrition Therapy DATE: 08/30/16 Patient: KELLY CHENG Physician: ALYCIA Address: [address] Room/Bed: [address], Zip: [place] [address] Admit Date: 08/29/16 Date of : 38 Height: 6 2 Weight: 176 80 1. Enteral nutrition once appropriate Monitoring, Evaluation and Goals: 1. Enteral nutrition; initiate once appropriate, provide >80% goal volume 2. Improve labs; Phos, glucose, BUN, creat, AST, trig, GFR 3. GI; promote regular GI function, OGT output 4. Weight; prevent weight loss Recommendations: 1. Once medically feasible when the pt is hemodynamically stable and OGT no longer suctioning, recommend initiating enteral nutrition with Nepro @ 15 mL/hr. Increase by 10 mL q 8 hrs as tolerated to indicated goal below: WHILE THE PT IS RECEIVING PROPOFOL: -Increase Nepro to 40 mL/hr + 30 mL Prostat once daily to provide: 2118 kcals/ 93 grams protein/ 701 mL free H20 WHEN PROPOFOL IS DISCONTINUED: -Discontinue Prostat -Increase Nepro to 50 mL/hr to provide: 2160 kcals/ 97 grams protein/ 876 mL free H20 2. RD will follow up to make appropriate recommendations based on the pt's hospital course. Pt is at moderate-severe nutritional risk. RD will follow hospital course per protocol. Respectfully, AMARILIS HELTON, RD, LD Food and Nutrition[facility] Services [facility] cc: client file
--- NOTE | ~2016-08-29 | CR72 ---
[facility] A Service of [facility] RADIOLOGY TEXT RESULTS PATIENT: KELLY CHENG LOCATION: [place] [address] : 38 UNIT #: [id number] AGE: [address]: Seema Jefferson MD SEX: M ORDER DR: [id number] [facility] [address] [place], [place] [address] [id number] I MR#: [id number] Acc #: [id number] NAME: KELLY CHENG. : 1940 SEX: M STUDY DATE/TIME: 09/06/2016 4:24 UNIT: [facility] ROOM: [facility] STUDY DESCRIPTION: CR Chest Single View Portable Attending Physician: Seema Jefferson M.D. Ordering Physician: Stephon Liu M.D. Primary Care Physician: Janine Stanley M.D. MEDICAL IMAGING REPORT This report is preliminary unless electronic signature is present EXAM Chest x-ray: 09/06/2016 HISTORY Short of air. Sepsis, endocarditis. Follow up inpatient cardiopulmonary status. TECHNIQUE AP portable chest x-ray. FINDINGS Interstitial infiltrate or edema in the perihilar regions and lung bases with more dense consolidation or atelectasis in the lung bases, unchanged since yesterday. Heart size normal. Feeding tube below the diaphragm. Right IJ Shiley catheter in good position. IMPRESSION 1. Support equipment in good position. 2. No change since yesterday. Dictated by... Narayan Marmolejo M.D. THIS IS AN ELECTRONICALLY VERIFIED REPORT Narayan Marmolejo M.D. at 09/06/2016 9:58 PM NASH/amelia TD: 09/06/2016 09:27 JOB #: [id number] MEDICAL IMAGING REPORT Page 1 of 1 COPY
--- NOTE | ~2016-08-29 | EKG ---
PATIENT: KELLY CHENG UNIT #: [id number] Ventricular Rate: 97 BPM Atrial Rate: 97 BPM P-R Interval: 150 ms QRS Duration: 96 ms Q-T Interval: 354 ms QTC Calculation(Bezet): 449 ms P [place]: 22 degrees Calculated R [place]: 46 degrees Calculated T [place]: 81 degrees Diagnosis Line: Normal sinus rhythm Diagnosis Line: Nonspecific ST and T wave abnormality Diagnosis Line: Abnormal ECG Diagnosis Line: When compared with ECG of 01-SEP-2016 06:19, Diagnosis Line: (unconfirmed) Diagnosis Line: Nonspecific T wave abnormality now evident in Diagnosis Line: Lateral leads Diagnosis Line: Confirmed by CAMPOS RIOS MD ([id number]) on Diagnosis Line: 09/04/2016 2:03:32 PM INTERPRETING MD: ELA
--- NOTE | ~2016-08-29 | CR7 ---
[facility] A Service of [facility] & [facility] RADIOLOGY TEXT RESULTS PATIENT: KELLY CHENG LOCATION: [address] : 38 UNIT #: [id number] AGE: [address]: Seema Jefferson MD SEX: M ORDER DR: [id number] [facility] [address] [place], [place] [address] [id number] I MR#: [id number] Acc #: [id number] NAME: KELLY CHENG. : 1940 SEX: M STUDY DATE/TIME: 09/05/2016 22:05 UNIT: [facility] ROOM: [facility] STUDY DESCRIPTION: CR Abdomen Single AP View Attending Physician: Seema Jefferson M.D. Ordering Physician: Seema Jefferson M.D. Primary Care Physician: Janine Stanley M.D. MEDICAL IMAGING REPORT This report is preliminary unless electronic signature is present EXAM Portable abdomen for feeding tube placement, 09/05/2016 HISTORY Feeding tube placement. FINDINGS Dobbhoff feeding tube tip is in the mid portion of the stomach at 2205 hours on 09/05/2016. STAT * RESULT Dictated by... Narayan Marmolejo M.D. THIS IS AN ELECTRONICALLY VERIFIED REPORT Narayan Marmolejo M.D. at 09/06/2016 6:04 AM NASH/mckayla TD: 09/05/2016 22:45 JOB #: [id number] MEDICAL IMAGING REPORT Page 1 of 1 COPY
--- NOTE | ~2016-08-29 | CR72 ---
[facility] A Service of [facility] & [facility] RADIOLOGY TEXT RESULTS PATIENT: KELLY CHENG LOCATION: [place] [address] : 38 UNIT #: [id number] AGE: [address]: Parminder Sandoval MD SEX: M ORDER DR: [id number] [facility] [address] [place], [place] [address] [id number] I MR#: [id number] Acc #: [id number] NAME: KELLY CHENG. : 1940 SEX: M STUDY DATE/TIME: 09/02/2016 5:25 UNIT: [facility] ROOM: [facility] STUDY DESCRIPTION: CR Chest Single View Portable Attending Physician: Parminder Sandoval M.D. Ordering Physician: Stephon Liu M.D. Primary Care Physician: Janine Stanley M.D. MEDICAL IMAGING REPORT This report is preliminary unless electronic signature is present EXAM Portable chest 09/02. INDICATIONS Report failure. Ventilator patient. Hypertension. Pericarditis. Symptoms for 4 days. FINDINGS AP portable chest compared with 09/01/2016. ET tube and right IJ line are in good position. Infiltrates in both [id number] lungs with bilateral pleural effusions do not appear significantly changed. No pneumothorax. Dictated by... Timothy Dao Jr., M.D. THIS IS AN ELECTRONICALLY VERIFIED REPORT Timothy Dao Jr., M.D. at 09/03/2016 6:05 AM SANDRA/rakesh TD: 09/02/2016 10:38 JOB #: [id number] MEDICAL IMAGING REPORT Page 1 of 1 COPY
--- NOTE | ~2016-08-29 | CR72 ---
[facility] A Service of [facility] & [facility] RADIOLOGY TEXT RESULTS PATIENT: KELLY CHENG LOCATION: [address] : 38 UNIT #: [id number] AGE: [address]: Seema Jefferson MD SEX: M ORDER DR: [id number] [facility] [address] [place], [place] [address] [id number] I MR#: [id number] Acc #: [id number] NAME: KELLY CHENG. : 1940 SEX: M STUDY DATE/TIME: 09/05/2016 21:04 UNIT: [facility] ROOM: [facility] STUDY DESCRIPTION: CR Chest Single View Portable Attending Physician: Seema Jefferson M.D. Ordering Physician: Seema Jefferson M.D. Primary Care Physician: Janine Stanley M.D. MEDICAL IMAGING REPORT This report is preliminary unless electronic signature is present EXAM Portable chest HISTORY Dobbhoff tube placement. Respiratory failure. FINDINGS Feeding tube is malpositioned in the midline upper mediastinum. The tip of the tube is kinked and is directed superiorly. This could lie either in the upper thoracic esophagus or trachea and should be repositioned with repeat radiograph prior to utilization. Dense left basilar consolidation or atelectasis is similar to yesterday. There has been partial clearing of the right lower lung with persistent mild right basilar infiltrate or atelectasis. ETT and NG tube have been removed. Dictated by... Leander Carlos M.D. THIS IS AN ELECTRONICALLY VERIFIED REPORT Leander Carlos M.D. at 09/06/2016 3:06 PM BHAVANA/epifanio TD: 09/06/2016 08:07 JOB #: [id number] MEDICAL IMAGING REPORT Page 1 of 1 COPY
--- NOTE | ~2016-08-29 | EKG ---
PATIENT: KELLY CHENG UNIT #: [id number] Ventricular Rate: 88 BPM Atrial Rate: 88 BPM P-R Interval: 144 ms QRS Duration: 102 ms Q-T Interval: 400 ms QTC Calculation(Bezet): 484 ms P [place]: 38 degrees Calculated R [place]: 43 degrees Calculated T [place]: 63 degrees Diagnosis Line: Normal sinus rhythm Diagnosis Line: Nonspecific ST abnormality Diagnosis Line: Prolonged QT Diagnosis Line: Abnormal ECG Diagnosis Line: When compared with ECG of 29-AUG-2016 07:13, Diagnosis Line: (unconfirmed) Diagnosis Line: Vent. rate has decreased BY 43 BPM Diagnosis Line: ST no longer depressed in Inferior leads Diagnosis Line: Nonspecific T wave abnormality no longer evident Diagnosis Line: in Inferior leads Diagnosis Line: T wave inversion no longer evident in Lateral Diagnosis Line: leads Diagnosis Line: Confirmed by CAMPOS RIOS MD ([id number]) on Diagnosis Line: 08/31/2016 5:20:16 PM INTERPRETING MD: ELA
--- NOTE | ~2016-08-29 | CR72 ---
[facility] A Service of [facility] & [facility] RADIOLOGY TEXT RESULTS PATIENT: KELLY CHENG LOCATION: [place] [address] : 38 UNIT #: [id number] AGE: [address]: Parminder Sandoval MD SEX: M ORDER DR: [id number] [facility] [address] [place], [place] [address] [id number] I MR#: [id number] Acc #: [id number] NAME: KELLY CHENG. : 1940 SEX: M STUDY DATE/TIME: 08/29/2016 16:28 UNIT: [facility] ROOM: [facility] STUDY DESCRIPTION: CR Chest Single View Portable Attending Physician: Parminder Sandoval M.D. Ordering Physician: Lili Epps M.D. Primary Care Physician: Janine Stanley M.D. MEDICAL IMAGING REPORT This report is preliminary unless electronic signature is present EXAM Portable chest, 08/29/2016 INDICATION Line placement. Respiratory distress. FINDINGS AP portable chest compared with 08/29/2016 at 0647 hours. ET tube mid trachea. New right IJ line tip near the cavoatrial junction. No pneumothorax. Infiltrates are unchanged. Lung volumes are lower. Dictated by... Timothy Dao Jr., M.D. THIS IS AN ELECTRONICALLY VERIFIED REPORT Timothy Dao Jr., M.D. at 08/30/2016 8:46 PM SANDRA/bernard TD: 08/30/2016 00:17 JOB #: [id number] MEDICAL IMAGING REPORT Page 1 of 1 COPY
--- NOTE | ~2016-08-29 | CT4 ---
[facility] A Service of [facility] & [facility] RADIOLOGY TEXT RESULTS PATIENT: KELLY CHENG LOCATION: [address] : 38 UNIT #: [id number] AGE: [address]: Parminder Sandoval MD SEX: M ORDER DR: [id number] [facility] [address] [place], [place] [address] [id number] I MR#: [id number] Acc #: [id number] NAME: KELLY CHENG. : 1940 SEX: M STUDY DATE/TIME: 08/29/2016 18:43 UNIT: [facility] ROOM: [facility] STUDY DESCRIPTION: CT Abd and Pelv Wo Cont Attending Physician: Parminder Sandoval M.D. Ordering Physician: Parminder Sandoval M.D. Primary Care Physician: Janine Stanley M.D. MEDICAL IMAGING REPORT This report is preliminary unless electronic signature is present EXAM CT abdomen and pelvis, 08/29/2016 INDICATION Abdominal distension for 2 days. Metabolic acidosis. TECHNIQUE Axial images were obtained through the abdomen and pelvis following oral contrast administration. Multiplanar reformats were obtained. Comparison made with 01/31/2012. This CT exam was performed with one or more of the following radiation dose reduction techniques: automatic exposure control, adjustment of mA and/or kV according to patient size, and iterative reconstruction. FINDINGS ABDOMEN: There are moderate bilateral effusions with consolidations in the lower lobes which may reflect atelectasis and/or pneumonia. Gallbladder is surgically absent. There is mild right hydronephrosis which is actually improved since the old study. No obstructing lesion is seen. There are no stones. There is a right renal cyst. The unenhanced solid organs are normal. There is some wall thickening in the duodenum which may reflect duodenitis. The remainder of the GI tract is within normal limits. No free fluid is seen. PELVIS: Again seen is marked abnormal urinary bladder. It contains numerous large diverticula. It is very similar in appearance to the prior study. The appendix is surgically absent. The GI tract is otherwise unremarkable and relatively decompressed. Of note, the patient's Pickering catheter balloon is inflated in the penile urethra. The tip of the Pickering is within the prostate gland. There is degenerative disease in the spine. [facility] A Service of [facility] & [facility] RADIOLOGY TEXT RESULTS PATIENT: KELLY CHENG LOCATION: [facility]IC[facility]2 CICCU2-04 : 38 UNIT #: [id number] AGE: [address]: Parminder Sandoval MD SEX: M ORDER DR: IMPRESSION 1. Moderate bilateral pleural effusions with bilateral lower lobe atelectasis and/or pneumonia. 2. Markedly abnormal urinary bladder, presumably the result of numerous large diverticula. This is very similar in appearance to the 2011 exam. 3. There is mild right hydronephrosis with no obstructing lesion identified. This is improved since that older exam. No renal stones or ureteral stones are identified. 4. Cholecystectomy and appendectomy. 5. Wall thickening in the duodenum suggesting duodenitis. The remainder of the GI tract is grossly normal. 6. The patient's Pickering balloon is expanded within the penile urethra. The tip of the Pickering is in the lower margin of the prostate gland. This finding has been called to the patient's nurse, Destiny, at the time of this dictation. STAT * RESULT Dictated by... Timothy Dao Jr., M.D. THIS IS AN ELECTRONICALLY VERIFIED REPORT Timothy Dao Jr., M.D. at 08/30/2016 8:45 PM SANDRA/bernard TD: 08/29/2016 21:20 JOB #: [id number] MEDICAL IMAGING REPORT Page 1 of 1 COPY
--- NOTE | ~2016-08-29 | CR72 ---
[facility] A Service of [facility] / [facility] RADIOLOGY TEXT RESULTS PATIENT: KELLY CHENG LOCATION: [facility] CICCU2-04 : 38 UNIT #: [id number] AGE: [address]: Seema Jefferson MD SEX: M ORDER DR: [id number] [place] [id number] [facility] [place], [place] [address] [id number] E MR#: [id number] Acc #: [id number] NAME: KELLY CHENG. : 1940 SEX: M STUDY DATE/TIME: 08/29/2016 6:47 UNIT: [facility] ROOM: STUDY DESCRIPTION: CR Chest Single View Portable Attending Physician: Fuentes Sifuentes M.D. Ordering Physician: Fuentes Sifuentes M.D. Primary Care Physician: Janine Stanley M.D. MEDICAL IMAGING REPORT This report is preliminary unless electronic signature is present EXAM Portable AP view of the chest COMPARISON 2 views of the chest dated August 10, 2015. INDICATION 76-year-old male with dyspnea and respiratory failure today requiring endotracheal intubation. FINDINGS Endotracheal tube tip is somewhat high-riding positioned approximately 8.2 cm above the yazmin. There are bilateral mixed interstitial and alveolar perihilar opacities extending into both lung bases and to a lesser extent the upper lobes. No significant pleural effusion. No evidence of pneumothorax. Top normal heart size. IMPRESSION 1. High-riding endotracheal tube with the tip terminating 8.2 cm above the yazmin. 2. Diffuse lung opacities and the distribution suggesting pulmonary edema. Process such as aspiration is thought less likely. Correlation to exclude signs of bacterial pneumonia recommended. No pleural effusion or pneumothorax. Dictated by... Deon Jean M.D. THIS IS AN ELECTRONICALLY VERIFIED REPORT Deon Jean M.D. at 09/06/2016 8:08 AM Jennifer TD: 08/29/2016 08:56 [facility] A Service of [facility] / [facility] RADIOLOGY TEXT RESULTS PATIENT: KELLY CHENG LOCATION: [address] : 38 UNIT #: [id number] AGE: [address]: Seema Jefferson MD SEX: M ORDER DR: JOB #: [id number] MEDICAL IMAGING REPORT Page 1 of 1 COPY
--- NOTE | ~2016-08-29 | CO ---
Unit #: [id number] #: [id number] Patient: KELLY CHENG [id number] [address] [address] [id number] I MR#: [id number] NAME: KELLY CHENG. ROOM: [facility] Age: 76 Sex: M Admission Date: 08/29/2016 : 1940 Attending Physician: Parminder Sandoval M.D. Primary Care Physician: Janine Stanley M.D. Consultation Date: 09/03/2016 CONSULTATION REPORT The patient was admitted to Dr. Parminder Sandoval. 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 HISTORY OF PRESENT ILLNESS This is a 76-year-old male, who is currently on the ventilator and unable to provide any history. History is obtained via chart, discussion with the family and ICU staff as well as the physicians treating this patient. Patient has a known history of atrial fibrillation and valvular heart disease as well as multiple other medical problems, who began declining approximately one month ago and was not able to walk as far as he normally had. Patient then began to have progressive weakness, chills, and shortness of breath and was admitted to the hospital by family on Tuesday morning. While he was here, he was noted to have some acute respiratory failure and he was placed on the ventilator as well as pressors. He also was having some diarrhea. From an infectious disease standpoint, patient did not have fever but he had significant leukocytosis of 27,000 and blood cultures also showed 2/2 with Strep viridans. Chest x-ray showed pulmonary edema versus pneumonia and patient was started on Rocephin. This morning, the patient's LADONNA confirmed a mitral valve vegetation and infectious disease was asked to evaluate for antibiotic management. PAST MEDICAL HISTORY 1. Pericardial effusion, secondary to hydralazine-induced lupus. 2. Hypertension. 3. Obstructive sleep apnea. 4. Paroxysmal atrial fibrillation. 5. BPH. 6. Anemia. 7. Chronic kidney disease. 8. Colon polyps. 9. Hepatitis C. PAST SURGICAL HISTORY 1. Cholecystectomy. 2. Tonsillectomy. 3. Appendectomy. 4. Bilateral cataract surgery. 5. Transurethral resection on the prostate. ALLERGIES Augmentin and hydralazine; however, patient is tolerating ceftriaxone without difficulties. Unit #: [id number] #: [id number] Patient: KELLY CHENG MEDICATIONS The patient is not currently on any pressor support. He is on Diprivan. He is also tolerating Rocephin. For other medications, please refer to patient's MAR. SOCIAL HISTORY The patient has a past tobacco abuse. No alcohol or other drug use. REVIEW OF SYSTEMS Unable to obtain as the patient is currently on the ventilator. PHYSICAL EXAMINATION VITAL SIGNS: Temperature 97.2, pulse 84, blood pressure 119/69, respiratory rate 20. GENERAL: This is a sedated male, who is currently on the ventilator. HEENT: His pupils are sluggish. NECK: His neck is supple with a right IJ line. CARDIOVASCULAR: S1, S2 without murmur appreciated. PULMONARY: Clear with FIO2 of 55% on the ventilator. ABDOMEN: Positive bowel sounds. Soft and nontender. EXTREMITIES: No clubbing, cyanosis, or edema. DIAGNOSTIC STUDIES LABORATORY: BUN 68, creatinine 2.5. Sodium 144, potassium 3.6, chloride 110, CO2 of 27. Bilirubin 0.7, AST 44, ALT 24. CK total on admission 280. Troponin on admission was 7.45 and currently is 3.67. BNP 1853. Lactic acid 2.7 on admission. Procalcitonin 1.58. White blood cell count 9.3, which is improved from admission of 23,000. Hemoglobin 10.3, hematocrit 32.4, platelets 138,000. Legionella was negative. Strep pneumo antigen was negative. Urinalysis shows white blood cell count of 5-10 with innumerable red blood cells, negative nitrites, 1+ leukocytes. August 29 blood cultures showed 2/2 Strep viridans sensitive to ceftriaxone with a KIERAN less than 0.25. Respiratory cultures show normal issac. Urine culture is negative. Clostridium difficile was negative. IMAGING: Chest x-ray shows persistent bibasilar opacity and pleural fluid. CT scan of the abdomen on admission: Moderate bilateral pleural effusion, mild right hydronephrosis with no obstructing lesion, wall thickening in the duodenum suggestive of duodenitis. IMPRESSION This is a 76-year-old male with known valvular heart disease and atrial fibrillation as well as hydralazine-induced lupus, who was admitted to the hospital with weakness, chills, and shortness of breath. Per the family, patient has had a steady decline in patient's functional status for the last one month. Patient was found to have Strep viridans bacteremia/sepsis and had respiratory failure requiring the use of the ventilator and also a Levophed drip. Pressors are currently off at this time. The patient continues to have some renal failure and there is some question if patient will end up on dialysis. 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 At this time, patient appears to be tolerating Rocephin well. Will continue Rocephin 2 g daily for approximately four to six weeks and repeat blood cultures x2 today. Will continue to follow patient's respiratory status as well. This case was discussed with patient's direct care staffer. Unit #: [id number] #: [id number] Patient: KELLY CHENG Thank you for allowing us to participate in the care of this patient. Further recommendations to follow pending patient's clinical course. Dictated by... Wilda MorrisP.RZainabN. for Anson Oswald/madan TD: 09/03/2016 11:07 JOB #: [id number] CONSULTATION REPORT Page 1 of 1 X X CONSULTATION REPORT
--- NOTE | ~2016-08-29 | CR7 ---
[facility] A Service of [facility] & [facility] RADIOLOGY TEXT RESULTS PATIENT: KELLY CHENG LOCATION: [place] [address] : 38 UNIT #: [id number] AGE: [address]: Parminder Sandoval MD SEX: M ORDER DR: [id number] [facility] [address]. [place], [place] [address] [id number] I MR#: [id number] Acc #: [id number] NAME: KELLY CHENG. : 1940 SEX: M STUDY DATE/TIME: 08/29/2016 16:32 UNIT: [facility] ROOM: [facility] STUDY DESCRIPTION: CR Abdomen Single AP View Attending Physician: Parminder Sandoval M.D. Ordering Physician: Lili Epps M.D. Primary Care Physician: Janine Stanley M.D. MEDICAL IMAGING REPORT This report is preliminary unless electronic signature is present EXAM KUB, 08/29/2016 INDICATION OG tube placement. FINDINGS Supine view of the abdomen was obtained. The tip of an NG tube is present in the body of the stomach. Bowel gas pattern is normal. Dictated by... Timothy Dao Jr., M.D. THIS IS AN ELECTRONICALLY VERIFIED REPORT Timothy Dao Jr., M.D. at 08/30/2016 8:46 PM SANDRA/bernard TD: 08/30/2016 00:18 JOB #: [id number] MEDICAL IMAGING REPORT Page 1 of 1 COPY
--- NOTE | ~2016-08-29 | CT71 ---
[facility] A Service of [facility] & [facility] RADIOLOGY TEXT RESULTS PATIENT: KELLY CHENG LOCATION: [facility] - : 38 UNIT #: [id number] AGE: [address]: Seema Jefferson MD SEX: M ORDER DR: [id number] [facility] [address]. [place], [place] [address] [id number] I MR#: [id number] Acc #: [id number] NAME: KELLY CHENG. : 1940 SEX: M STUDY DATE/TIME: 09/13/2016 6:14 [facility]OM: [facility] STUDY DESCRIPTION: CT Head Wo Contrast Attending Physician: Seema Jefferson M.D. Ordering Physician: Parminder Sandoval M.D. Primary Care Physician: Janine Stanley M.D. MEDICAL IMAGING REPORT This report is preliminary unless electronic signature is present EXAM Noncontrast head CT. HISTORY 76-year-old male fell out of bed this morning, hematoma right forehead, complains of headaches. COMPARISON Head CT 06/06/2016. This CT exam was performed with one or more of the following radiation dose reduction techniques: automatic exposure control, adjustment of mA and/or kV according to patient size, and iterative reconstruction. FINDINGS Axial noncontrast imaging of the brain demonstrates generalized atrophy. Extensive decreased attenuation of the periventricular white matter and deep nuclei most likely reflects sequela of chronic microvascular disease. Old left thalamic lacunar infarct and probable left basal ganglia lacunar infarct. No mass or mass effect or midline shift. No hemorrhage or abnormal extraaxial fluid collections. The study is slightly motion degraded and additional imaging was performed of the vertex brain. Bony calvarium appears intact. There is bilateral mastoid fluid as well as fluid in the right middle ear cavity. This could represent noninfected effusions but correlate clinically for otomastoiditis. No evidence of a skull base fracture. Sizable right frontal scalp hematoma. IMPRESSION 1. No definite acute intracranial abnormality identified. Study slightly motion degraded and additional imaging was performed through the vertex. 2. Severe generalized atrophy with evidence of chronic microvascular STS. [facility] A Service of [facility] & [facility] RADIOLOGY TEXT RESULTS PATIENT: KELLY CHENG LOCATION: [facility]01 : 38 UNIT #: [id number] AGE: [address]: Seema Jefferson MD SEX: M ORDER DR: disease and old left thalamic lacunar infarct. 3. Right frontal scalp hematoma. 4. Fluid both mastoid air cells and also within the right middle ear cavity and possibly on the left as well. Findings could reflect otomastoiditis. Correlate clinically. Dictated by... Jeanne Edwards M.D. THIS IS AN ELECTRONICALLY VERIFIED REPORT Jeanne Edwards M.D. at 09/13/2016 3:55 PM Lisa TD: 09/13/2016 10:15 JOB #: [id number] MEDICAL IMAGING REPORT Page 1 of 1 COPY
--- NOTE | ~2016-08-29 | CR7 ---
[facility] A Service of [facility] & [facility] RADIOLOGY TEXT RESULTS PATIENT: KELLY CHENG LOCATION: [address] : 38 UNIT #: [id number] AGE: [address]: Seema Jefferson MD SEX: M ORDER DR: [id number] [facility] [address] [place], [place] [address] [id number] I MR#: [id number] Acc #: [id number] NAME: KELLY CHENG. : 1940 SEX: M STUDY DATE/TIME: 09/06/2016 14:35 UNIT: [facility] ROOM: [facility] STUDY DESCRIPTION: CR Abdomen Single AP View Attending Physician: Seema Jefferson M.D. Ordering Physician: Seema Jefferson M.D. Primary Care Physician: Janine Stanley M.D. MEDICAL IMAGING REPORT This report is preliminary unless electronic signature is present EXAM Portable abdomen. HISTORY Feeding tube placement. FINDINGS Portable radiograph of the abdomen for feeding tube placement demonstrates the feeding tube tip is in the medial left upper quadrant at the level of the gastric fundus 7 cm beyond the EG junction. The tube has been pulled back slightly compared to yesterday. Visualized bowel gas pattern is normal. The exam does not include the right lateral abdomen or the lower pelvis. Surgical clips in the right upper quadrant. Mild right lumbar curve and multilevel degenerative changes in the lumbar spine. Dictated by... Leander Carlos M.D. THIS IS AN ELECTRONICALLY VERIFIED REPORT Leander Carlos M.D. at 09/06/2016 11:49 PM DFKaleb/mary TD: 09/06/2016 16:42 JOB #: [id number] MEDICAL IMAGING REPORT Page 1 of 1 COPY
--- NOTE | ~2016-08-29 | HP ---
Unit #: [id number] #: [id number] Patient: KELLY CHENG [id number] [address] [address] [id number] I MR#: [id number] NAME: KELLY CHENG. ROOM: [facility] Age: 76 Sex: M Admission Date: 08/29/2016 : 1940 Attending Physician: Parminder Sandoval M.D. Primary Care Physician: Janine Stanley M.D. 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 In the emergency room, he was intubated. Labs were sent. His troponin was slightly high on the first set, but a second one was diagnostic. His white count was 27,000 and hemoglobin 7.3. His pH was 7.083 with a PCO2 of 27.8. Random blood sugar was 287, BUN 45, and creatinine 2.8. Chest x-ray showed diffuse infiltrates more consistent with pulmonary edema versus possible aspiration or atypical pneumonia. EKG is difficult to interpret because of baseline water but appears to be in SVT or atrial fibrillation, and the patient is admitted for further evaluation. PAST MEDICAL HISTORY 1. 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 2. Hypertension. 3. Obstructive sleep apnea syndrome. 4. Paroxysmal atrial fibrillation. 5. Benign prostatic hypertrophy. 6. Anemia. 7. Chronic kidney disease. 8. Colonic polyps. 9. Hepatitis C. PAST SURGICAL HISTORY 1. Cholecystectomy. 2. Tonsillectomy. 3. Appendectomy. 4. Bilateral cataracts. 5. Transurethral resection of the prostate. ALLERGIES Augmentin and hydralazine. MEDICATIONS PRIOR TO ADMISSION 1. Atrovent nasal spray 4 times daily. 2. Amlodipine 5 mg daily. 3. Eliquis 2.5 mg b.i.d. Unit #: [id number] #: [id number] Patient: KELLY CHENG 4. Lopressor 50 mg b.i.d. 5. Aricept 10 mg daily. 6. Simvastatin 20 mg daily. 7. ProAir 4 times daily p.r.n. SOCIAL HISTORY Prior smoker. No significant alcohol or street drug use. FAMILY HISTORY Unobtainable. PHYSICAL EXAMINATION GENERAL: He is intubated and sedated. VITAL SIGNS: Afebrile, pulse 106, blood pressure 158/69, and O2 saturations currently 100% on ventilator. HEENT: Unremarkable except for the ET tube in place. NECK: Supple without JVD, bruit, adenopathy, or thyromegaly. CHEST: Clear to auscultation. HEART: Regular rate and rhythm. He was tachycardic without an S3 gallop or murmur appreciated. ABDOMEN: Soft, nondistended, and nontender, with positive with bowel sounds and no hepatosplenomegaly. EXTREMITIES: No clubbing, cyanosis, or edema. GENITOURINARY/RECTAL: Deferred. NEUROLOGIC: Unobtainable. DIAGNOSTIC STUDIES LABORATORY: First troponin was 0.37 and second one was 3.2. White count was 27,000 with a left shift and hemoglobin 7.3 with an elevated MCV. First set of gases showed a pH of 7.083, PCO2 of 27.9, and PAO2 of 108. Second set shows a pH of 7.314, PCO2 of 25, and PAO2 of 70, and that is on an A/C rate of 27, tidal volume of 550, 10 of PEEP, and 60%. Coags were normal. CMP was normal except for a random blood sugar of 287, BUN 45, creatinine 2.8, GFR of 20, AST 66, and albumin 3.1. Lactic acid was 14.8 and 5.5 on repeat. BNP 3312. Procalcitonin 2.43. IMAGING: Chest x-ray as above. CARDIOLOGY: EKG as mentioned above. IMPRESSION 1. Acute respiratory failure with hypoxemia. 2. Severe metabolic acidosis. 3. Elevated troponin. 4. Elevated blood sugar. 5. Paroxysmal atrial fibrillation. 6. Acute on chronic kidney disease. 7. Megaloblastic anemia. 8. Bilateral pulmonary infiltrates. 9. Obstructive sleep apnea syndrome. 10. History of pericarditis. 11. History of hepatitis C. 12. Hypertension. PLAN Ventilator support, sepsis protocol, IV Rocephin, and IV Zithromax. Cardiology, nephrology, and pulmonary services have been consulted. Will repeat his EKG to verify his rhythm. Repeat cardiac enzymes. Work up the Unit #: [id number] #: [id number] Patient: KELLY CHENG anemia. Transfuse one unit to try to keep his hemoglobin above 8. Check an A1c. Accu-Cheks and a.c. and at bedtime. Low-dose sliding scale insulin. Pulmonary has already seen the patient, added vancomycin, and started him on sodium bicarbonate in his IV fluids. Further evaluation pending results of the above. Dictated by Anson Boateng/juan c TD: 08/29/2016 14:06 JOB #: [id number] HISTORY AND PHYSICAL Page 1 of 1 X Parminder Sandoval MD X HISTORY AND PHYSICAL
--- NOTE | ~2016-08-29 | CR7 ---
[facility] A Service of [facility] RADIOLOGY TEXT RESULTS PATIENT: KELLY CHENG LOCATION: [place] [id number] : 38 UNIT #: [id number] AGE: [address]: Seema Jefferson MD SEX: M ORDER DR: [id number] [facility] [address]. [place], [place] [address] [id number] I MR#: [id number] Acc #: [id number] NAME: KELLY CHENG. : 1940 SEX: M STUDY DATE/TIME: 09/06/2016 15:41 UNIT: [facility] ROOM: [facility] STUDY DESCRIPTION: CR Abdomen Single AP View Attending Physician: Seema Jefferson M.D. Ordering Physician: Seema Jefferson M.D. Primary Care Physician: Janine Stanley M.D. MEDICAL IMAGING REPORT This report is preliminary unless electronic signature is present EXAM Frontal abdomen 09/06/2016. INDICATIONS Dobbhoff tube placement. TECHNIQUE Frontal abdomen was performed. COMPARISON 1435 hours FINDINGS The tip of the Dobbhoff tube has been retracted and now projects at the level of the distal esophagus. It should be advanced another 10-15 cm distally for positioning at the level of the stomach with a followup radiograph to document appropriate positioning prior to usage. There are postoperative changes in the upper abdomen. Faint atelectasis or infiltrate in the lung bases, right greater than left. IMPRESSION 1. The tip of the Dobbhoff tube is at the level of the lpw-dt-hzstxe esophagus. It should be advanced another 10-15 cm for positioning at the level of the stomach with a followup radiograph to document appropriate positioning prior to usage. Findings regarding the position of the Dobbhoff tube were called to the patient's nurse at the time of this dictation. 2. Probable atelectasis or potentially faint infiltrates in the lung bases. Dictated by... Branden Nolasco M.D. [facility] A Service [facility] RADIOLOGY TEXT RESULTS PATIENT: KELLY CHENG LOCATION: [facility] UNIT #: [id number] AGE: [address]: Seema Jefferson MD SEX: M ORDER DR: THIS IS AN ELECTRONICALLY VERIFIED REPORT Branden Nolasco M.D. at 09/07/2016 2:16 PM Flakita TD: 09/06/2016 19:08 JOB #: [id number] MEDICAL IMAGING REPORT Page 1 of 1 COPY
--- NOTE | ~2016-08-29 | CR72 ---
[facility] A Service of [facility] & [facility] RADIOLOGY TEXT RESULTS PATIENT: KELLY CHENG LOCATION: [place] [address] : 38 UNIT #: [id number] AGE: [address]: Parminder Sandoval MD SEX: M ORDER DR: [id number] [facility] [address]. [place], [place] [address] [id number] I MR#: [id number] Acc #: [id number] NAME: KELLY CHENG. : 1940 SEX: M STUDY DATE/TIME: 09/04/2016 5:59 UNIT: [facility] ROOM: [facility] STUDY DESCRIPTION: CR Chest Single View Portable Attending Physician: Parminder Sandoval M.D. Ordering Physician: Stephon Liu M.D. Primary Care Physician: Janine Stanley M.D. MEDICAL IMAGING REPORT This report is preliminary unless electronic signature is present EXAM Portable chest. HISTORY Followup endotracheal tube and infiltrates. FINDINGS Today's portable view of the chest shows the endotracheal tube and Shiley catheter are in good position. The heart size is normal. There is bilateral lower lobe atelectasis with some faint perihilar infiltrate. There has been no change. Dictated by... Salvatore Valdez M.D. THIS IS AN ELECTRONICALLY VERIFIED REPORT Salvatore Valdez M.D. at 09/05/2016 7:02 AM KRISTI/mary TD: 09/04/2016 14:58 JOB #: [id number] MEDICAL IMAGING REPORT Page 1 of 1 COPY
--- NOTE | ~2016-08-29 | CO ---
Unit #: [id number] #: [id number] Patient: KELLY CHENG [id number] [address] [place], [place] [address] [id number] I MR#: [id number] NAME: KELLY CHENG. ROOM: [facility] Age: 76 Sex: M Admission Date: 08/29/2016 : 1940 Attending Physician: Parminder Sandoval M.D. Primary Care Physician: Janine Stanley M.D. CONSULTATION REPORT REASON FOR CONSULTATION Acute renal failure. HISTORY OF PRESENT ILLNESS This is a 76-year-old white gentleman with known chronic kidney disease stage 3. His baseline creatinine runs approximately 1.7. He is followed closely by my partner, Dr. Dante Freeman. The reports that for the past 3 to 4 days, the patient has felt very poorly with some mild abdominal pain and diarrhea. He had an episode of diarrhea last night. He felt very weak and tired after which she recommended he come to the hospital. At that time, he said he wanted to just go to bed and lie down. He also had some shortness of air as well as a cough that had been worsening for the last week, but no documented fevers at home. This morning, she noted her to be more ill with worsening of shortness of air, so she subsequently called EMS. He was evaluated in the ER where he was found to have severe acidosis. Chest x-ray suggestive of possible pneumonia and was hypotensive. He was subsequently brought to the ICU where he was placed on a ventilator as well as Levophed and a bicarb drip. He was found to have acute renal failure with creatinine elevated at 2.5. Since being in the ICU, he continues to require Levophed for pressor support and he has remained anuric. He continues to have severe acidosis with serum bicarb of 8. We were asked to see him on an emergent basis. PAST MEDICAL HISTORY 1. Chronic kidney disease, stage 3. 2. Paroxysmal atrial fibrillation. 3. History of BPH, status post TURP. 4. Hypertension. 5. Anemia of chronic disease. 6. History of colonic polyps. 7. Remote history of pericarditis likely due to hydralazine-induced lupus. 8. History of hep C. 9. Obstructive sleep apnea. PAST SURGICAL HISTORY 1. Cholecystectomy. 2. Tonsillectomy. 3. Appendectomy. 4. Transurethral resection of prostate. ALLERGIES He is allergic to Augmentin and hydralazine. CURRENT MEDICATIONS Unit #: [id number] #: [id number] Patient: KELLY CHENG He is on Levophed. He is on bicarb drip, propofol, Rocephin, azithromycin, Protonix. REVIEW OF SYSTEMS Taken from the nurses as well as the family at bedside and is limited as the patient cannot participate. No recent chest pain. No melena or bright red blood per rectum. No emesis. No seizure like activity. No any rashes. No issues with edema. PHYSICAL EXAMINATION VITAL SIGNS: Blood pressure 135/62, heart rate 86, respiratory rate 25, he is afebrile. GENERAL: He is sedated. He is in no acute distress. HEENT: Pupils are reactive. NECK: Supple with no JVD, but no masses. HEART: S1, S2 with a slight systolic ejection murmur heard at left sternal border. Palpitation does not elicit any pain or signs. The patient is sedated on propofol. LUNGS: Coarse with diminished bases. No wheezes are appreciated. ABDOMEN: Slightly firm, nondistended. Minimal bowel sounds are appreciated. EXTREMITIES: Warm to touch. Faint pulses. SKIN: No significant rash or edema. DIAGNOSTIC STUDIES LABORATORY RESULTS: ABG shows a pH of 7.3, paCO2 of 25, and paO2 of 70. Sodium is 132, potassium 4.1, serum bicarb is 8, BUN is 45, creatinine is 3.8. White count is 23, hemoglobin is 7.3, platelets are 263. IMAGING STUDIES: Chest x-ray reviewed and shows patchy infiltrates bilaterally suggestive of pulmonary edema. ASSESSMENT 1. Acute kidney injury. 2. Severe metabolic acidosis. 3. Respiratory failure. 4. Sepsis. 5. Hypertension. 6. Hyponatremia. 7. Anemia. DISCUSSION AND PLAN At this time, it is likely that his acute kidney injury is due to poor renal perfusion from hypertension and sepsis. We will go ahead and check urine studies to rule out any additional etiology. The most concerning issue at the moment is his severe acidosis. We will continue him on IV fluids with bicarb. However, we will change this fluid to an isotonic solution such that the sodium does not continue to drop. We will repeat the BMP and lactic acid at this time. We will go and check a KUB. We will consult [facility] to follow along. Once he is more stable, we will get a CT of the abdomen. We will go ahead and placed a dialysis on. If he is anuric, will likely need dialysis in the next 24 hours. We will transfuse p.r.n. for his anemia and continues to monitor closely for any blood losses. I have discussed this case at length with the family at the bedside as well as the hospitalist and the nurse practitioner on-call for the ICU. Thank you kindly for this referral. It is my pleasure to stay in the care Unit #: [id number] #: [id number] Patient: KELLY CHENG of Mr. Cheng. Please do not hesitate to call me with any questions or concerns. Dictated by... Lili Epps M.D. JOJO/alison TD: 08/30/2016 01:41 JOB #: [id number] CONSULTATION REPORT Page 1 of 1 X Lili Epps MD X CONSULTATION REPORT
--- NOTE | ~2016-08-29 | EKG ---
PATIENT: KELLY CHENG UNIT #: [id number] Ventricular Rate: 112 BPM Atrial Rate: 117 BPM QRS Duration: 96 ms Q-T Interval: 344 ms QTC Calculation(Bezet): 469 ms Calculated R [place]: 47 degrees Calculated T [place]: 75 degrees Diagnosis Line: Atrial fibrillation with rapid ventricular Diagnosis Line: response Diagnosis Line: Nonspecific ST and T wave abnormality Diagnosis Line: Abnormal ECG Diagnosis Line: When compared with ECG of 04-SEP-2016 07:01, Diagnosis Line: Atrial fibrillation has replaced Sinus rhythm Diagnosis Line: Confirmed by CAMPOS RIOS MD ([id number]) on Diagnosis Line: 09/05/2016 10:04:57 PM INTERPRETING MD: ELA
--- NOTE | ~2016-08-29 | CR72 ---
[facility] A Service of [facility] & [facility] RADIOLOGY TEXT RESULTS PATIENT: KELLY CHENG LOCATION: [place] [address] : 38 UNIT #: [id number] AGE: [address]: Parmindre Sandoval MD SEX: M ORDER DR: [id number] [facility] [address] [facility] [facility]. [place], [place] [address] [id number] I MR#: [id number] Acc #: [id number] NAME: KELLY CHENG. : 1940 SEX: M STUDY DATE/TIME: 08/30/2016 5:34 UNIT: [facility] ROOM: [facility] STUDY DESCRIPTION: CR Chest Single View Portable Attending Physician: Parminder Sandoval M.D. Ordering Physician: James Xavier M.D. Primary Care Physician: Janine Stanley M.D. MEDICAL IMAGING REPORT This report is preliminary unless electronic signature is present EXAM Portable chest. INDICATIONS Respiratory failure. PROCEDURE Frontal view chest. COMPARISON 08/29/2016. FINDINGS Heart size is unchanged. Bilateral pulmonary opacities, very similar to the prior. ET tube is unchanged. IMPRESSION Stable. Dictated by... Deon Degroot M.D. THIS IS AN ELECTRONICALLY VERIFIED REPORT Deon Degroot M.D. at 08/31/2016 9:57 PM EED/gz TD: 08/30/2016 09:04 JOB #: [id number] MEDICAL IMAGING REPORT Page 1 of 1 COPY
--- NOTE | ~2016-08-29 | XA166 ---
[facility] A Service of [facility] & [facility] RADIOLOGY TEXT RESULTS PATIENT: KELLY CHENG LOCATION: A - : 38 UNIT #: [id number] AGE: [address]: Seema Jefferson MD SEX: M ORDER DR: [id number] [facility] [address] [place], [place] [address] [id number] I MR#: [id number] Acc #: [id number] NAME: KELLY CHENG. : 1940 SEX: M STUDY DATE/TIME: 09/09/2016 8:57 UNIT: [id number] ROOM: [facility] STUDY DESCRIPTION: XA PICC Line Placement WO Port Attending Physician: Seema Jefferson M.D. Ordering Physician: Elton Beaver M.D. Primary Care Physician: Janine Stanley M.D. MEDICAL IMAGING REPORT This report is preliminary unless electronic signature is present EXAM Right-sided PICC line placement under ultrasound and fluoroscopy HISTORY Long-term venous access PRE-PROCEDURE The procedure was explained to the patient and/or patient representative personal service including risks, benefits, potential complications and potential for alternative forms of treatment. Informed consent was obtained, and prior to initiating the procedure a formal timeout procedure was performed. PROCEDURE Using full standard sterile barrier technique, including caps, gowns, gloves, and masks, as well as sterile skin preparation and standard sterile draping, the right arm was prepped and draped in the usual fashion, and real-time sterile ultrasound guidance was used to localize an arm vein and to confirm vessel patency. A hard copy ultrasound image was recorded. After local anesthesia with 1% Xylocaine, the right brachial vein was punctured using real-time sterile ultrasound guidance, and a 0.018 guidewire was advanced into the superior vena cava, using fluoroscopic guidance. A 5 Tanzanian dual-lumen PICC was then measured to 40 cm and deployed with the tip positioned in the superior vena cava. The position of the line was documented with a radiographic image. The line was secured in place with an adhesive dressing and an antibiotic patch was applied. Total fluoro time was 0.1 minutes. Exposure 1 mg air kerma standard. 1 spot radiograph and 1 ultrasound image IMPRESSION [facility] A Service of [facility] & [facility] RADIOLOGY TEXT RESULTS PATIENT: KELLY CHENG LOCATION: [facility] 328-01 : 38 UNIT #: [id number] AGE: [address]: Seema Jefferson MD SEX: M ORDER DR: Successful placement of a 5 Tanzanian dual-lumen PowerPICC via the right arm under ultrasound and fluoroscopic guidance. The tip of the PICC is in good position in the cavoatrial junction. Dictated by... Giacomo Lewis M.D. THIS IS AN ELECTRONICALLY VERIFIED REPORT Giacomo Lewis M.D. at 09/16/2016 7:14 AM Sal TD: 09/14/2016 11:27 JOB #: [id number] MEDICAL IMAGING REPORT Page 1 of 1 COPY
--- NOTE | ~2016-08-29 | EKG ---
PATIENT: KELLY CHENG UNIT #: [id number] Ventricular Rate: 72 BPM Atrial Rate: 72 BPM P-R Interval: 152 ms QRS Duration: 104 ms Q-T Interval: 468 ms QTC Calculation(Bezet): 512 ms P [place]: 18 degrees Calculated R [place]: 39 degrees Calculated T [place]: 27 degrees Diagnosis Line: Normal sinus rhythm Diagnosis Line: Prolonged QT Diagnosis Line: Abnormal ECG Diagnosis Line: When compared with ECG of 30-AUG-2016 08:31, Diagnosis Line: (unconfirmed) Diagnosis Line: No significant change was found Diagnosis Line: Confirmed by CAMPOS RIOS MD ([id number]) on Diagnosis Line: 08/31/2016 5:26:21 PM INTERPRETING MD: ELA
--- NOTE | ~2016-08-29 | OR ---
Unit #: [id number] #: [id number] Patient: KELLY CHENG [id number] [address] [address] [id number] Janie MR#: [id number] NAME: KELLY CHENG ROOM: [facility] Date of Procedure: 08/29/2016 Admission Date: 08/29/2016 Surgeon: Fuentes Ramos M.D. : 1940 Attending Physician: Parminder Sandoval M.D. Primary Care Physician: Janine Stanley M.D. PROCEDURE OPERATIVE NOTE PREOPERATIVE DIAGNOSIS Urinary retention. POSTOPERATIVE DIAGNOSIS Urethral stricture with urinary retention. PROCEDURE PERFORMED 1. Cystoscopy. 2. Urethral dilation. 3. Complex catheter placement. ANESTHESIA General. INDICATIONS FOR PROCEDURE Patient is a 76-year-old gentleman who was admitted for sepsis. He is intubated and on the vent. Multiple attempts to place a Pickering catheter were unsuccessful by nursing staff and he had a CT scan, which shows his catheter is going up in his urethra. The risks, benefits, and alternatives including bleeding infection, damage to adjacent strictures, need for further surgery were discussed with the family and informed consent was obtained for this emergent procedure and they wished to proceed. DESCRIPTION OF PROCEDURE The patient was placed in supine position. His genitalia were prepped and draped in usual sterile fashion. I introduced the flexible cystoscope. In the bulbi urethra there was about a 5 Bermudian urethral stricture. I was able to pass a 0.035 Sensor wire. I dilated this sequentially to 20 Bermudian. I passed a 16 [place]ill tip catheter over the wire with a return of cloudy urine. The urine was irrigated clear, except for urine culture. 10 mL was placed in balloon and patient tolerated the procedure well without complications. Dictated by... Fuentes Ramos M.D. TEJINDER/inge TD: 08/30/2016 06:18 Unit #: [id number] #: [id number] Patient: KELLY CHENG JOB #: [id number] PROCEDURE OPERATIVE NOTE Page 1 of 1 X Fuentes Ramos MD X PROCEDURE OPERATIVE NOTE
[2016-08-29 07:02] LABS: BASOPHIL# 0.1 X10e3 (0-0.3); BASOPHIL% 0.5 % (0-2.5); DIFF IND YES; EOSINOPHIL% 0.1 % (0.0-7.0); HEMATOCRIT 26.2 % (38.0-50.0); HEMOGLOBIN 7.3 gm/dL (13.0-16.0); LYMPHOCYTE# 4.6 X10e3 (1.0-3.5); LYMPHOCYTE% 19.9 % (17.0-45.0); MEAN CELL VOLUME 111.5 FL (83-96); MEAN CORPUSCULAR HEMOGLOBIN 30.9 PG (28-34); MEAN CORPUSCULAR HGB CONC 27.8 g/dL (30-36); MEAN PLATELET VOLUME 8.1 FL (6.5-11.5); MONOCYTE# 2.1 X10e3 (0-1.0); MONOCYTE% 9.3 % (3.0-12.0); NEUTROPHIL# 16.2 X10e3 (1.5-7.1); NEUTROPHIL% 70.2 % (40-75); PLATELET COUNT 263 X10e3 (140-420); RED BLOOD COUNT 2.35 X10e (3.90-5.60)
[2016-08-29 07:03] LABS: POC - CKMB 9.4 ng/mL (0.0-7.9); POC - TROPONIN 0.37 ng/mL (<=0.05)
[2016-08-29 07:13] LABS: ANISOCYTOSIS MOD
[2016-08-29 07:14] LABS: ARTERIAL BLD GAS O2 SATURATION 92.7 % (90.0-100.0); ARTERIAL BLOOD GAS CARBOXY HB 1.6 %sat (0.0-9.0); ARTERIAL BLOOD GAS HCO3 8.3 mmol/L; ARTERIAL BLOOD GAS MET HB 1.3 %sat (0.0-2.0); ARTERIAL BLOOD GAS PCO2 27.9 mmHg (35.0-45.0)
[2016-08-29 07:14] LABS: PLATELET ESTIMATE NORMAL (NORMAL)
[2016-08-29 07:17] LABS: ARTERIAL BLOOD GAS ALLEN TEST NORMAL; ARTERIAL BLOOD GAS ART SITE LEFT RADIAL; ARTERIAL BLOOD GAS DELIVERY VENT; ARTERIAL BLOOD GAS VENT MODE A/C; ARTERIAL BLOOD GAS pH 7.083 (7.350-7.450); ARTERIAL DRAW? YES
[2016-08-29 07:41] LABS: INR 1.2; PARTIAL THROMBOPLASTIN TIME 27.3 SECONDS (23.5-31.3); PROTHROMBIN TIME (PATIENT) 12.7 SECONDS (9.6-11.5)
[2016-08-29 07:47] LABS: ALBUMIN SERUM 3.1 g/dL (3.5-5.0); BILIRUBIN, DIRECT 0.2 mg/dL (0.0-0.2); BILIRUBIN,INDIRECT 0.8 mg/dL (0.0-0.9); BUN/CREATININE RATIO 16.07; CALCIUM SERUM 9.2 mg/dL (8.4-10.2); CREATININE SERUM 2.8 mg/dL (0.6-1.4); GLOM FILT RATE Estimated 20.7 mL/min (>60); POTASSIUM 4.1 mmol/L (3.5-5.1); PROTEIN TOTAL SERUM 6.8 g/dL (6.0-8.3)
[2016-08-29] MEDS ORDERED: AMLODIPINE BESYL5 MG PO (09:46)
[2016-08-29] MEDS ORDERED: ATROVENT NASAL15 ML (09:46)
[2016-08-29] MEDS ORDERED: DONEPEZIL HCL10 MG PO (09:47)
[2016-08-29] MEDS ORDERED: ELIQUIS2.5 MG PO (09:47)
[2016-08-29] MEDS ORDERED: LOPRESSOR PO (09:47)
[2016-08-29] MEDS ORDERED: SIMVASTATIN20 MG PO (09:48)
[2016-08-29] MEDS ORDERED: PROAIR HFA8.5 GM INH (09:50)
[2016-08-29 12:34] LABS: ARTERIAL BLD GAS O2 SATURATION 90.2 % (90.0-100.0); ARTERIAL BLOOD GAS CARBOXY HB 1.5 %sat (0.0-9.0); ARTERIAL BLOOD GAS HCO3 12.7 mmol/L; ARTERIAL BLOOD GAS MET HB 0.8 %sat (0.0-2.0); ARTERIAL BLOOD GAS pH 7.314 (7.350-7.450)
[2016-08-29 12:35] LABS: ARTERIAL BLOOD GAS PO2 70.4 mmHg (80.0-100); ARTERIAL DRAW? YES
[2016-08-29 12:36] LABS: ARTERIAL BLOOD GAS ALLEN TEST NORMAL; ARTERIAL BLOOD GAS ART SITE RIGHT RADIAL; ARTERIAL BLOOD GAS DELIVERY VENT; ARTERIAL BLOOD GAS VENT MODE A/C
[2016-08-29 12:46] LABS: %MB 18.4 % (0.0-4.0); MB 39.9 ng/ml
[2016-08-29 14:43] LABS: IRON SERUM 38 ug/dL (45-182); TOTAL IRON BINDING CAPACITY 306 ug/dL (252-460); TRANSFERRIN 219 mg/dL (180-329); TRANSFERRIN SATURATION 12 % (20-50)
[2016-08-29 15:02] LABS: FOLATE (FOLIC ACID) >23.6 ng/mL (>5.8)
[2016-08-29 16:27] LABS: BUN/CREATININE RATIO 18.88; CALCIUM SERUM 8.3 mg/dL (8.4-10.2); CREATININE SERUM 2.7 mg/dL (0.6-1.4); GLOM FILT RATE Estimated 21.6 mL/min (>60)
[2016-08-29 17:51] LABS: ARTERIAL BLD GAS O2 SATURATION 97.3 % (90.0-100.0); ARTERIAL BLOOD GAS CARBOXY HB 1.3 %sat (0.0-9.0); ARTERIAL BLOOD GAS HCO3 17.8 mmol/L; ARTERIAL BLOOD GAS PCO2 29.6 mmHg (35.0-45.0); ARTERIAL BLOOD GAS pH 7.387 (7.350-7.450)
[2016-08-29 17:52] LABS: ARTERIAL BLOOD GAS ART SITE RIGHT RADIAL; ARTERIAL DRAW? YES
[2016-08-29 17:53] LABS: ARTERIAL BLOOD GAS DELIVERY VENT; ARTERIAL BLOOD GAS VENT MODE AC
[2016-08-29 18:26] LABS: %MB 20.1 % (0.0-4.0); MB 56.2 ng/ml
[2016-08-29 20:23] LABS: BUN/CREATININE RATIO 17.5; CREATININE SERUM 2.8 mg/dL (0.6-1.4); GLOM FILT RATE Estimated 20.7 mL/min (>60); POTASSIUM 3.7 mmol/L (3.5-5.1)
[2016-08-29 21:24] LABS: HEMATOCRIT 21.3 % (38.0-50.0)
[2016-08-29 21:28] LABS: HEMOGLOBIN 6.7 gm/dL (13.0-16.0)
[2016-08-29 23:32] LABS: URINE SOURCE CATH
[2016-08-29 23:40] LABS: URINE APPEARANCE TURBID; URINE BILIRUBIN NEG (NEG); URINE BLOOD 3+ (NEG); URINE COLOR DK YELLOW; URINE GLUCOSE NEG (NEG); URINE KETONE NEG (NEG); URINE LEUKOCYTE ESTERASE 1+ (NEG); URINE NITRATE NEG (NEG); URINE PROTEIN 2+ (NEG); URINE SPECIFIC GRAVITY 1.016 (1.003-1.035); URINE UROBILINOGEN 0.2 MG/DL (NEG)
[2016-08-29 23:44] LABS: CULTURE INDICATED? YES; URBCS1 AUWI INNUM /[HPF] (0-2); URINE BACTERIA AUWI NEG (NEGATIVE); URINE SQUAMOUS EPITHELIAL CELL NONE SEEN /[HPF]
[2016-08-30 04:19] LABS: ARTERIAL BLD GAS O2 SATURATION 97.2 % (90.0-100.0); ARTERIAL BLOOD GAS CARBOXY HB 1.4 %sat (0.0-9.0); ARTERIAL BLOOD GAS HCO3 19.8 mmol/L; ARTERIAL BLOOD GAS MET HB 1.1 %sat (0.0-2.0); ARTERIAL BLOOD GAS PCO2 30.5 mmHg (35.0-45.0); ARTERIAL BLOOD GAS pH 7.421 (7.350-7.450)
[2016-08-30 04:38] LABS: ARTERIAL BLOOD GAS ALLEN TEST NORMAL; ARTERIAL BLOOD GAS ART SITE LEFT RADIAL; ARTERIAL BLOOD GAS DELIVERY VENT; ARTERIAL BLOOD GAS VENT MODE AC; ARTERIAL DRAW? YES
[2016-08-30 05:54] LABS: HEMATOCRIT 21.5 % (38.0-50.0); MEAN CORPUSCULAR HEMOGLOBIN 31.5 PG (28-34); MEAN CORPUSCULAR HGB CONC 32.2 g/dL (30-36); MEAN PLATELET VOLUME 7.9 FL (6.5-11.5); RED BLOOD COUNT 2.2 X10e (3.90-5.60); WHITE BLOOD COUNT 15.3 X10e3 (4.0-10.5)
[2016-08-30 06:05] LABS: HEMOGLOBIN 6.9 gm/dL (13.0-16.0); MEAN CELL VOLUME 97.8 FL (83-96)
[2016-08-30 06:18] LABS: MAGNESIUM 2.3 mg/dL (1.6-3.0); PHOSPHOROUS 5.6 mg/dL (2.5-4.6)
[2016-08-30 06:23] LABS: CHOLESTEROL 73 mg/dL (0-200); HDL CHOLESTEROL 11 mg/dL (29-75); LDL CHOLESTEROL 28 mg/dL (-130); LDL/HDL RATIO 3 RATIO (0-4); TRIGLYCERIDES 169 mg/dL (10-160)
[2016-08-30 06:33] LABS: ALBUMIN SERUM 2.5 g/dL (3.5-5.0); BILIRUBIN,TOTAL 0.7 mg/dL (0.2-2.0); CALCIUM SERUM 7.9 mg/dL (8.4-10.2); POTASSIUM 3.7 mmol/L (3.5-5.1); PROTEIN TOTAL SERUM 5.4 g/dL (6.0-8.3)
[2016-08-30 10:43] LABS: LEGIONELLA AG URINE NEG (NEG)
[2016-08-30 16:48] LABS: HEMATOCRIT 27.3 % (38.0-50.0); HEMOGLOBIN 8.8 gm/dL (13.0-16.0)
[2016-08-30 23:08] LABS: HEMATOCRIT 28.5 % (38.0-50.0); HEMOGLOBIN 9.2 gm/dL (13.0-16.0)
[2016-08-31 04:15] LABS: BASOPHIL% 0.3 % (0-2.5); HEMATOCRIT 27.2 % (38.0-50.0); LYMPHOCYTE# 0.5 X10e3 (1.0-3.5); LYMPHOCYTE% 4.3 % (17.0-45.0); MEAN CELL VOLUME 92.9 FL (83-96); MEAN CORPUSCULAR HGB CONC 32.4 g/dL (30-36); MEAN PLATELET VOLUME 8.3 FL (6.5-11.5); MONOCYTE# 0.5 X10e3 (0-1.0); MONOCYTE% 4.2 % (3.0-12.0); NEUTROPHIL# 11.2 X10e3 (1.5-7.1); NEUTROPHIL% 91.2 % (40-75); PLATELET COUNT 139 X10e3 (140-420); RED BLOOD COUNT 2.93 X10e (3.90-5.60); RED CELL DISTRIBUTION WIDTH 19.5 % (11.0-15.5); WHITE BLOOD COUNT 12.3 X10e3 (4.0-10.5)
[2016-08-31 04:16] LABS: DIFF IND NO; HEMOGLOBIN 8.8 gm/dL (13.0-16.0)
[2016-08-31 04:26] LABS: INR 1.1; PROTHROMBIN TIME (PATIENT) 11.1 SECONDS (9.6-11.5)
[2016-08-31 04:36] LABS: BUN/CREATININE RATIO 23.21; CALCIUM SERUM 7.3 mg/dL (8.4-10.2); CREATININE SERUM 2.8 mg/dL (0.6-1.4); GLOM FILT RATE Estimated 20.7 mL/min (>60); MAGNESIUM 2.3 mg/dL (1.6-3.0); PHOSPHOROUS 5.6 mg/dL (2.5-4.6); POTASSIUM 3.7 mmol/L (3.5-5.1)
[2016-08-31 04:46] LABS: ARTERIAL BLD GAS O2 SATURATION 94.4 % (90.0-100.0); ARTERIAL BLOOD GAS HCO3 24.1 mmol/L; ARTERIAL BLOOD GAS MET HB 0.6 %sat (0.0-2.0); ARTERIAL BLOOD GAS PCO2 33.3 mmHg (35.0-45.0); ARTERIAL BLOOD GAS pH 7.469 (7.350-7.450)
[2016-08-31 04:58] LABS: ARTERIAL BLOOD GAS ALLEN TEST NORMAL; ARTERIAL BLOOD GAS ART SITE RIGHT RADIAL; ARTERIAL BLOOD GAS PO2 77.4 mmHg (80.0-100); ARTERIAL BLOOD GAS VENT MODE AC; ARTERIAL DRAW? YES
[2016-09-01 04:31] LABS: ARTERIAL BLD GAS O2 SATURATION 91.7 % (90.0-100.0); ARTERIAL BLOOD GAS CARBOXY HB 1.6 %sat (0.0-9.0); ARTERIAL BLOOD GAS HCO3 25.9 mmol/L; ARTERIAL BLOOD GAS MET HB 0.5 %sat (0.0-2.0); ARTERIAL BLOOD GAS PCO2 30.5 mmHg (35.0-45.0); ARTERIAL BLOOD GAS pH 7.536 (7.350-7.450)
[2016-09-01 04:39] LABS: BASOPHIL% 0.3 % (0-2.5); EOSINOPHIL# 0.1 X10e3 (0-0.7); EOSINOPHIL% 0.6 % (0.0-7.0); HEMATOCRIT 30.5 % (38.0-50.0); HEMOGLOBIN 9.8 gm/dL (13.0-16.0); LYMPHOCYTE# 0.6 X10e3 (1.0-3.5); LYMPHOCYTE% 6.4 % (17.0-45.0); MEAN CELL VOLUME 94.5 FL (83-96); MEAN CORPUSCULAR HEMOGLOBIN 30.3 PG (28-34); MONOCYTE# 0.5 X10e3 (0-1.0); MONOCYTE% 5.7 % (3.0-12.0); NEUTROPHIL# 8.4 X10e3 (1.5-7.1); PLATELET COUNT 154 X10e3 (140-420); RED BLOOD COUNT 3.23 X10e (3.90-5.60); RED CELL DISTRIBUTION WIDTH 19.4 % (11.0-15.5); WHITE BLOOD COUNT 9.6 X10e3 (4.0-10.5)
[2016-09-01 04:47] LABS: DIFF IND NO
[2016-09-01 04:54] LABS: ARTERIAL BLOOD GAS ALLEN TEST NORMAL; ARTERIAL BLOOD GAS ART SITE RIGHT RADIAL; ARTERIAL BLOOD GAS PO2 60.8 mmHg (80.0-100); ARTERIAL DRAW? YES
[2016-09-01 04:55] LABS: ARTERIAL BLOOD GAS VENT MODE AC
[2016-09-01 05:13] LABS: BUN/CREATININE RATIO 23.1; CALCIUM SERUM 7.9 mg/dL (8.4-10.2); CREATININE SERUM 2.9 mg/dL (0.6-1.4); GLOM FILT RATE Estimated 19.8 mL/min (>60); PHOSPHOROUS 4.8 mg/dL (2.5-4.6); PREALBUMIN 16.5 mg/dL (17.0-42.0)
[2016-09-01 05:17] LABS: POTASSIUM 2.9 mmol/L (3.5-5.1)
[2016-09-01 05:21] LABS: PROCALCITONIN 1.58 NG/ML
[2016-09-01 23:06] LABS: BUN/CREATININE RATIO 23.7; CALCIUM SERUM 8.1 mg/dL (8.4-10.2); CREATININE SERUM 2.7 mg/dL (0.6-1.4); GLOM FILT RATE Estimated 21.6 mL/min (>60); MAGNESIUM 2.4 mg/dL (1.6-3.0); POTASSIUM 3.7 mmol/L (3.5-5.1)
[2016-09-02 05:16] LABS: BASOPHIL# 0.1 X10e3 (0-0.3); BASOPHIL% 0.8 % (0-2.5); EOSINOPHIL# 0.2 X10e3 (0-0.7); EOSINOPHIL% 2.1 % (0.0-7.0); HEMATOCRIT 35.1 % (38.0-50.0); HEMOGLOBIN 11.1 gm/dL (13.0-16.0); LYMPHOCYTE# 0.7 X10e3 (1.0-3.5); LYMPHOCYTE% 7.2 % (17.0-45.0); MEAN CELL VOLUME 95.5 FL (83-96); MEAN CORPUSCULAR HEMOGLOBIN 30.2 PG (28-34); MEAN CORPUSCULAR HGB CONC 31.7 g/dL (30-36); MONOCYTE# 0.9 X10e3 (0-1.0); MONOCYTE% 9.7 % (3.0-12.0); NEUTROPHIL# 7.6 X10e3 (1.5-7.1); NEUTROPHIL% 80.2 % (40-75); PLATELET COUNT 126 X10e3 (140-420); RED BLOOD COUNT 3.68 X10e (3.90-5.60); RED CELL DISTRIBUTION WIDTH 19.2 % (11.0-15.5); WHITE BLOOD COUNT 9.5 X10e3 (4.0-10.5)
[2016-09-02 05:18] LABS: DIFF IND NO
[2016-09-02 05:27] LABS: ARTERIAL BLOOD GAS ALLEN TEST NORMAL; ARTERIAL BLOOD GAS ART SITE LEFT RADIAL; ARTERIAL BLOOD GAS CARBOXY HB 1.7 %sat (0.0-9.0); ARTERIAL BLOOD GAS DELIVERY VENT; ARTERIAL BLOOD GAS HCO3 26.4 mmol/L; ARTERIAL BLOOD GAS MET HB 0.9 %sat (0.0-2.0); ARTERIAL BLOOD GAS PCO2 37.2 mmHg (35.0-45.0); ARTERIAL BLOOD GAS PO2 65.9 mmHg (80.0-100); ARTERIAL BLOOD GAS pH 7.458 (7.350-7.450); ARTERIAL DRAW? YES
[2016-09-02 05:28] LABS: ARTERIAL BLOOD GAS VENT MODE AC
[2016-09-02 07:58] LABS: ALBUMIN SERUM 2.4 g/dL (3.5-5.0); BILIRUBIN,TOTAL 0.7 mg/dL (0.2-2.0); BUN/CREATININE RATIO 23.7; CALCIUM SERUM 8.4 mg/dL (8.4-10.2); CREATININE SERUM 2.7 mg/dL (0.6-1.4); GLOM FILT RATE Estimated 21.6 mL/min (>60); MAGNESIUM 2.3 mg/dL (1.6-3.0); POTASSIUM 3.8 mmol/L (3.5-5.1); PROTEIN TOTAL SERUM 5.5 g/dL (6.0-8.3)
[2016-09-03 04:43] LABS: BASOPHIL# 0.1 X10e3 (0-0.3); BASOPHIL% 0.7 % (0-2.5); DIFF IND NO; EOSINOPHIL# 0.5 X10e3 (0-0.7); EOSINOPHIL% 4.9 % (0.0-7.0); HEMATOCRIT 32.4 % (38.0-50.0); HEMOGLOBIN 10.3 gm/dL (13.0-16.0); LYMPHOCYTE# 0.7 X10e3 (1.0-3.5); LYMPHOCYTE% 7.1 % (17.0-45.0); MEAN CELL VOLUME 94.9 FL (83-96); MEAN CORPUSCULAR HEMOGLOBIN 30.1 PG (28-34); MEAN CORPUSCULAR HGB CONC 31.7 g/dL (30-36); MEAN PLATELET VOLUME 7.6 FL (6.5-11.5); MONOCYTE# 0.9 X10e3 (0-1.0); MONOCYTE% 9.8 % (3.0-12.0); NEUTROPHIL# 7.2 X10e3 (1.5-7.1); NEUTROPHIL% 77.5 % (40-75); PLATELET COUNT 138 X10e3 (140-420); RED BLOOD COUNT 3.42 X10e (3.90-5.60); RED CELL DISTRIBUTION WIDTH 19.1 % (11.0-15.5); WHITE BLOOD COUNT 9.3 X10e3 (4.0-10.5)
[2016-09-03 05:04] LABS: BUN/CREATININE RATIO 27.2; CALCIUM SERUM 8.4 mg/dL (8.4-10.2); CREATININE SERUM 2.5 mg/dL (0.6-1.4); GLOM FILT RATE Estimated 23.7 mL/min (>60); POTASSIUM 3.6 mmol/L (3.5-5.1)
[2016-09-03 05:09] LABS: MAGNESIUM 2.4 mg/dL (1.6-3.0); PHOSPHOROUS 6.5 mg/dL (2.5-4.6)
[2016-09-03 11:40] LABS: ARTERIAL BLOOD GAS PCO2 36.1 mmHg (35.0-45.0); ARTERIAL BLOOD GAS PO2 72.3 mmHg (80.0-100)
[2016-09-03 11:41] LABS: ARTERIAL BLD GAS O2 SATURATION 95.6 % (90.0-100.0); ARTERIAL BLOOD GAS HCO3 11.6 mmol/L
[2016-09-03 11:43] LABS: ARTERIAL BLOOD GAS ALLEN TEST NORMAL; ARTERIAL BLOOD GAS CARBOXY HB 1.3 %sat (0.0-9.0); ARTERIAL BLOOD GAS MET HB 0.8 %sat (0.0-2.0); ARTERIAL DRAW? YES
[2016-09-03 11:44] LABS: ARTERIAL BLOOD GAS ART SITE LEFT RADIAL; ARTERIAL BLOOD GAS VENT MODE CPAP
[2016-09-04 05:18] LABS: BASOPHIL# 0.1 X10e3 (0-0.3); BASOPHIL% 0.7 % (0-2.5); DIFF IND NO; EOSINOPHIL# 0.5 X10e3 (0-0.7); EOSINOPHIL% 5.7 % (0.0-7.0); HEMATOCRIT 35.5 % (38.0-50.0); HEMOGLOBIN 11.2 gm/dL (13.0-16.0); LYMPHOCYTE# 0.8 X10e3 (1.0-3.5); LYMPHOCYTE% 9.3 % (17.0-45.0); MEAN CELL VOLUME 95.9 FL (83-96); MEAN CORPUSCULAR HEMOGLOBIN 30.2 PG (28-34); MEAN CORPUSCULAR HGB CONC 31.5 g/dL (30-36); MONOCYTE# 0.9 X10e3 (0-1.0); MONOCYTE% 9.8 % (3.0-12.0); NEUTROPHIL# 6.6 X10e3 (1.5-7.1); NEUTROPHIL% 74.5 % (40-75); PLATELET COUNT 152 X10e3 (140-420); RED CELL DISTRIBUTION WIDTH 19.2 % (11.0-15.5); WHITE BLOOD COUNT 8.9 X10e3 (4.0-10.5)
[2016-09-04 06:18] LABS: BUN/CREATININE RATIO 29.6; CALCIUM SERUM 8.6 mg/dL (8.4-10.2); CREATININE SERUM 2.5 mg/dL (0.6-1.4); GLOM FILT RATE Estimated 23.7 mL/min (>60); POTASSIUM 3.8 mmol/L (3.5-5.1)
[2016-09-04 12:24] LABS: ARTERIAL BLD GAS O2 SATURATION 96.9 % (90.0-100.0); ARTERIAL BLOOD GAS PO2 83.4 mmHg (80.0-100); ARTERIAL BLOOD GAS pH 7.469 (7.350-7.450)
[2016-09-04 12:25] LABS: ARTERIAL BLOOD GAS ALLEN TEST NORMAL; ARTERIAL BLOOD GAS ART SITE LEFT RADIAL; ARTERIAL BLOOD GAS DELIVERY VENT; ARTERIAL BLOOD GAS MET HB 0.6 %sat (0.0-2.0); ARTERIAL BLOOD GAS VENT MODE CPAP; ARTERIAL DRAW? YES
[2016-09-05 06:03] LABS: BUN/CREATININE RATIO 34.4; CALCIUM SERUM 8.9 mg/dL (8.4-10.2); CREATININE SERUM 2.5 mg/dL (0.6-1.4); GLOM FILT RATE Estimated 23.7 mL/min (>60); POTASSIUM 3.4 mmol/L (3.5-5.1)
[2016-09-05 14:25] LABS: ARTERIAL BLOOD GAS ALLEN TEST NORMAL; ARTERIAL BLOOD GAS ART SITE LEFT RADIAL; ARTERIAL BLOOD GAS CARBOXY HB 1.1 %sat (0.0-9.0); ARTERIAL BLOOD GAS DELIVERY VENT; ARTERIAL BLOOD GAS HCO3 31.3 mmol/L; ARTERIAL BLOOD GAS MET HB 0.7 %sat (0.0-2.0); ARTERIAL BLOOD GAS PCO2 40.5 mmHg (35.0-45.0); ARTERIAL BLOOD GAS PO2 80.2 mmHg (80.0-100); ARTERIAL BLOOD GAS VENT MODE CPAP; ARTERIAL BLOOD GAS pH 7.495 (7.350-7.450); ARTERIAL DRAW? YES
[2016-09-05 15:16] LABS: ARTERIAL BLOOD GAS HCO3 32.2 mmol/L; ARTERIAL BLOOD GAS PCO2 43.3 mmHg (35.0-45.0); ARTERIAL BLOOD GAS PO2 69.9 mmHg (80.0-100); ARTERIAL BLOOD GAS pH 7.479 (7.350-7.450)
[2016-09-05 15:17] LABS: ARTERIAL BLD GAS O2 SATURATION 94.8 % (90.0-100.0); ARTERIAL BLOOD GAS ALLEN TEST NORMAL; ARTERIAL BLOOD GAS ART SITE LEFT RADIAL; ARTERIAL BLOOD GAS CARBOXY HB 1.1 %sat (0.0-9.0); ARTERIAL BLOOD GAS DELIVERY NASAL CANNULA; ARTERIAL BLOOD GAS MET HB 0.7 %sat (0.0-2.0); ARTERIAL DRAW? YES
[2016-09-06 04:04] LABS: BASOPHIL# 0.1 X10e3 (0-0.3); BASOPHIL% 1.4 % (0-2.5); EOSINOPHIL# 0.2 X10e3 (0-0.7); EOSINOPHIL% 3.1 % (0.0-7.0); HEMATOCRIT 33.8 % (38.0-50.0); HEMOGLOBIN 10.8 gm/dL (13.0-16.0); LYMPHOCYTE# 0.8 X10e3 (1.0-3.5); LYMPHOCYTE% 12.3 % (17.0-45.0); MEAN CELL VOLUME 94.5 FL (83-96); MEAN CORPUSCULAR HEMOGLOBIN 30.3 PG (28-34); MEAN PLATELET VOLUME 7.7 FL (6.5-11.5); MONOCYTE# 0.7 X10e3 (0-1.0); MONOCYTE% 9.7 % (3.0-12.0); NEUTROPHIL# 5.1 X10e3 (1.5-7.1); NEUTROPHIL% 73.5 % (40-75); PLATELET COUNT 113 X10e3 (140-420); RED BLOOD COUNT 3.58 X10e (3.90-5.60); RED CELL DISTRIBUTION WIDTH 17.8 % (11.0-15.5); WHITE BLOOD COUNT 6.9 X10e3 (4.0-10.5)
[2016-09-06 04:09] LABS: DIFF IND NO
[2016-09-06 04:27] LABS: BUN/CREATININE RATIO 43.04; CALCIUM SERUM 8.8 mg/dL (8.4-10.2); CREATININE SERUM 2.3 mg/dL (0.6-1.4); GLOM FILT RATE Estimated 26.2 mL/min (>60); MAGNESIUM 2.5 mg/dL (1.6-3.0)
[2016-09-07 04:17] LABS: BASOPHIL# 0.2 X10e3 (0-0.3); BASOPHIL% 2.2 % (0-2.5); EOSINOPHIL# 0.2 X10e3 (0-0.7); EOSINOPHIL% 3.5 % (0.0-7.0); HEMATOCRIT 33.4 % (38.0-50.0); HEMOGLOBIN 10.4 gm/dL (13.0-16.0); LYMPHOCYTE# 0.8 X10e3 (1.0-3.5); LYMPHOCYTE% 11.7 % (17.0-45.0); MEAN CELL VOLUME 94.3 FL (83-96); MEAN CORPUSCULAR HEMOGLOBIN 29.3 PG (28-34); MEAN CORPUSCULAR HGB CONC 31.1 g/dL (30-36); MONOCYTE# 0.6 X10e3 (0-1.0); MONOCYTE% 8.9 % (3.0-12.0); NEUTROPHIL# 5.2 X10e3 (1.5-7.1); NEUTROPHIL% 73.7 % (40-75); PLATELET COUNT 114 X10e3 (140-420); RED BLOOD COUNT 3.54 X10e (3.90-5.60); RED CELL DISTRIBUTION WIDTH 17.3 % (11.0-15.5)
[2016-09-07 04:22] LABS: DIFF IND NO
[2016-09-07 04:50] LABS: BUN/CREATININE RATIO 45.71; CALCIUM SERUM 8.9 mg/dL (8.4-10.2); CREATININE SERUM 2.1 mg/dL (0.6-1.4); GLOM FILT RATE Estimated 29.3 mL/min (>60); MAGNESIUM 2.4 mg/dL (1.6-3.0); POTASSIUM 3.5 mmol/L (3.5-5.1)
[2016-09-08 07:28] LABS: BASOPHIL# 0.2 X10e3 (0-0.3); BASOPHIL% 2.2 % (0-2.5); EOSINOPHIL# 0.2 X10e3 (0-0.7); HEMATOCRIT 33.3 % (38.0-50.0); HEMOGLOBIN 10.5 gm/dL (13.0-16.0); LYMPHOCYTE% 10.8 % (17.0-45.0); MEAN CELL VOLUME 94.5 FL (83-96); MEAN CORPUSCULAR HEMOGLOBIN 29.8 PG (28-34); MEAN CORPUSCULAR HGB CONC 31.5 g/dL (30-36); MEAN PLATELET VOLUME 8.6 FL (6.5-11.5); MONOCYTE# 0.7 X10e3 (0-1.0); MONOCYTE% 7.6 % (3.0-12.0); NEUTROPHIL# 7.5 X10e3 (1.5-7.1); NEUTROPHIL% 77.4 % (40-75); PLATELET COUNT 124 X10e3 (140-420); RED BLOOD COUNT 3.52 X10e (3.90-5.60); RED CELL DISTRIBUTION WIDTH 17.5 % (11.0-15.5); WHITE BLOOD COUNT 9.6 X10e3 (4.0-10.5)
[2016-09-08 07:42] LABS: DIFF IND NO
[2016-09-08 08:21] LABS: BUN/CREATININE RATIO 43.52; CREATININE SERUM 1.7 mg/dL (0.6-1.4); GLOM FILT RATE Estimated 37.8 mL/min (>60); POTASSIUM 3.8 mmol/L (3.5-5.1)
[2016-09-09 05:27] LABS: BASOPHIL# 0.2 X10e3 (0-0.3); BASOPHIL% 2.7 % (0-2.5); EOSINOPHIL# 0.2 X10e3 (0-0.7); EOSINOPHIL% 3.5 % (0.0-7.0); HEMATOCRIT 29.6 % (38.0-50.0); HEMOGLOBIN 9.6 gm/dL (13.0-16.0); LYMPHOCYTE# 1.3 X10e3 (1.0-3.5); MEAN CELL VOLUME 93.1 FL (83-96); MEAN CORPUSCULAR HGB CONC 32.3 g/dL (30-36); MEAN PLATELET VOLUME 8.3 FL (6.5-11.5); MONOCYTE# 0.6 X10e3 (0-1.0); MONOCYTE% 8.2 % (3.0-12.0); NEUTROPHIL# 4.6 X10e3 (1.5-7.1); NEUTROPHIL% 66.6 % (40-75); PLATELET COUNT 123 X10e3 (140-420); RED BLOOD COUNT 3.18 X10e (3.90-5.60); RED CELL DISTRIBUTION WIDTH 16.9 % (11.0-15.5); WHITE BLOOD COUNT 6.8 X10e3 (4.0-10.5)
[2016-09-09 05:45] LABS: DIFF IND NO
[2016-09-09 06:04] LABS: BUN/CREATININE RATIO 33.52; CALCIUM SERUM 8.2 mg/dL (8.4-10.2); CREATININE SERUM 1.7 mg/dL (0.6-1.4); GLOM FILT RATE Estimated 37.8 mL/min (>60); POTASSIUM 3.8 mmol/L (3.5-5.1)
[2016-09-10 09:04] LABS: BUN/CREATININE RATIO 27.36; CALCIUM SERUM 8.6 mg/dL (8.4-10.2); CREATININE SERUM 1.9 mg/dL (0.6-1.4); POTASSIUM 4.3 mmol/L (3.5-5.1)
[2016-09-11 06:57] LABS: HEMATOCRIT 26.7 % (38.0-50.0); HEMOGLOBIN 8.5 gm/dL (13.0-16.0); MEAN CELL VOLUME 93.3 FL (83-96); MEAN CORPUSCULAR HEMOGLOBIN 29.8 PG (28-34); MEAN CORPUSCULAR HGB CONC 31.9 g/dL (30-36); MEAN PLATELET VOLUME 8.4 FL (6.5-11.5); RED BLOOD COUNT 2.86 X10e (3.90-5.60); RED CELL DISTRIBUTION WIDTH 16.9 % (11.0-15.5); WHITE BLOOD COUNT 6.4 X10e3 (4.0-10.5)
[2016-09-11 07:32] LABS: BUN/CREATININE RATIO 23.68; CALCIUM SERUM 8.5 mg/dL (8.4-10.2); CREATININE SERUM 1.9 mg/dL (0.6-1.4); POTASSIUM 4.5 mmol/L (3.5-5.1)
[2016-09-12 06:35] LABS: BUN/CREATININE RATIO 23.33; CALCIUM SERUM 8.5 mg/dL (8.4-10.2); CREATININE SERUM 1.8 mg/dL (0.6-1.4); GLOM FILT RATE Estimated 35.3 mL/min (>60); POTASSIUM 4.4 mmol/L (3.5-5.1)
[2016-09-12 08:47] LABS: URINE APPEARANCE CLEAR; URINE BILIRUBIN NEG (NEG); URINE BLOOD 2+ (NEG); URINE COLOR YELLOW; URINE GLUCOSE NEG (NEG); URINE KETONE NEG (NEG); URINE LEUKOCYTE ESTERASE NEG (NEG); URINE NITRATE NEG (NEG); URINE PROTEIN 1+ (NEG); URINE SPECIFIC GRAVITY 1.011 (1.003-1.035); URINE UROBILINOGEN 0.2 MG/DL (NEG)
[2016-09-12 08:50] LABS: URINE BACTERIA AUWI NEG (NEGATIVE); URINE SQUAMOUS EPITHELIAL CELL NONE SEEN /[HPF]; UWBCS1 AUWI 0-2 (0-5)
[2016-09-13 07:58] LABS: HEMATOCRIT 26.1 % (38.0-50.0); HEMOGLOBIN 8.3 gm/dL (13.0-16.0); MEAN CELL VOLUME 94.1 FL (83-96); MEAN CORPUSCULAR HEMOGLOBIN 29.8 PG (28-34); MEAN CORPUSCULAR HGB CONC 31.7 g/dL (30-36); MEAN PLATELET VOLUME 8.6 FL (6.5-11.5); RED BLOOD COUNT 2.78 X10e (3.90-5.60); RED CELL DISTRIBUTION WIDTH 16.9 % (11.0-15.5); WHITE BLOOD COUNT 4.8 X10e3 (4.0-10.5)
[2016-09-13 08:19] LABS: BUN/CREATININE RATIO 17.36; CALCIUM SERUM 8.5 mg/dL (8.4-10.2); CREATININE SERUM 1.9 mg/dL (0.6-1.4); POTASSIUM 4.3 mmol/L (3.5-5.1)
== END 2016-09-13 21:44 | DRG 870 ==
LOC: CED 06:27 → CICCU2 09:15 → CEDOF 09:15 → CED 09:53 → CICCU2 12:32 → CEDOF 12:32 → C3A PCU 09-07 17:12
PROVIDERS: Emergency Medicine; Internal Medicine; Internal Medicine Cardiovascular Disease; Internal Medicine Nephrology; Nurse Practitioner; Physician Assistant Medical; Specialist; Urology
PROC: 5A1955Z Respiratory Ventilation, Greater than 96 Consecutive Hours (ICD-10-PCS; 2016-08-29)
PROC: B24BYZZ Ultrasonography of Heart with Aorta using Other Contrast (ICD-10-PCS; 2016-08-29)
PROC: 0T7D8ZZ Dilation of Urethra, Via Natural or Artificial Opening Endoscopic (ICD-10-PCS; 2016-08-29)
PROC: 0T9B80Z Drainage of Bladder with Drainage Device, Via Natural or Artificial Opening Endoscopic (ICD-10-PCS; 2016-08-29)
PROC: 30233N1 Transfusion of Nonautologous Red Blood Cells into Peripheral Vein, Percutaneous Approach (ICD-10-PCS; 2016-08-29)
PROC: 0BH17EZ Insertion of Endotracheal Airway into Trachea, Via Natural or Artificial Opening (ICD-10-PCS; 2016-08-29)
PROC: 05HM33Z Insertion of Infusion Device into Right Internal Jugular Vein, Percutaneous Approach (ICD-10-PCS; 2016-08-29)
PROC: B543ZZA Ultrasonography of Right Jugular Veins, Guidance (ICD-10-PCS; 2016-08-29)
PROC: 30233N1 Transfusion of Nonautologous Red Blood Cells into Peripheral Vein, Percutaneous Approach (ICD-10-PCS; 2016-08-30)
PROC: B24BZZ4 Ultrasonography of Heart with Aorta, Transesophageal (ICD-10-PCS; principal; 2016-09-03)
PROC: 02HV33Z Insertion of Infusion Device into Superior Vena Cava, Percutaneous Approach (ICD-10-PCS; 2016-09-09)
PROC: B518YZA Fluoroscopy of Superior Vena Cava using Other Contrast, Guidance (ICD-10-PCS; 2016-09-09)
DX: A41.9 Sepsis, unspecified organism (principal); J96.01 Acute respiratory failure with hypoxia; I21.4 Non-ST elevation (NSTEMI) myocardial infarction; N17.0 Acute kidney failure with tubular necrosis; I33.0 Acute and subacute infective endocarditis; J18.9 Pneumonia, unspecified organism; G93.41 Metabolic encephalopathy; I95.9 Hypotension, unspecified; I33.9 Acute and subacute endocarditis, unspecified; I50.31 Acute diastolic (congestive) heart failure; N17.9 Acute kidney failure, unspecified; E87.2 Acidosis; I50.30 Unspecified diastolic (congestive) heart failure; I13.0 Hypertensive heart and chronic kidney disease with heart failure and stage 1 through stage 4 chronic kidney disease, or unspecified chronic kidney disease; E87.1 Hypo-osmolality and hyponatremia; K92.2 Gastrointestinal hemorrhage, unspecified; I48.0 Paroxysmal atrial fibrillation; A49.1 Streptococcal infection, unspecified site; R33.9 Retention of urine, unspecified; E87.6 Hypokalemia; D64.9 Anemia, unspecified; G47.33 Obstructive sleep apnea (adult) (pediatric); F03.90 Unspecified dementia, unspecified severity, without behavioral disturbance, psychotic disturbance, mood disturbance, and anxiety; N40.0 Benign prostatic hyperplasia without lower urinary tract symptoms; Z87.891 Personal history of nicotine dependence; Z79.82 Long term (current) use of aspirin; S00.83XA Contusion of other part of head, initial encounter; I08.1 Rheumatic disorders of both mitral and tricuspid valves; E78.5 Hyperlipidemia, unspecified; B95.4 Other streptococcus as the cause of diseases classified elsewhere; Z86.19 Personal history of other infectious and parasitic diseases; Z98.42 Cataract extraction status, left eye; Z98.41 Cataract extraction status, right eye; Z88.0 Allergy status to penicillin; M32.0 Drug-induced systemic lupus erythematosus; Z88.1 Allergy status to other antibiotic agents; D53.1 Other megaloblastic anemias, not elsewhere classified; N18.3 Chronic kidney disease, stage 3 (moderate); D63.1 Anemia in chronic kidney disease; D69.6 Thrombocytopenia, unspecified; W19.XXXA Unspecified fall, initial encounter; Y93.9 Activity, unspecified; Y92.239 Unspecified place in hospital as the place of occurrence of the external cause
CPT/HCPCS: 31500; 36415; 36600; 51702; 70450; 71010; 73030; 73560; 74000; 74176; 76937; 77001; 80048; 80053; 80061; 80076; 80202; 81003; 82274; 82308; 82550; 82553; 82607; 82746; 82803; 82947; 83036; 83540; 83550; 83605; 83735; 83880; 84100; 84132; 84134; 84443; 84484; 85014; 85018; 85025; 85027; 85610; 85730; 86850; 86900; 86901; 86922; 86923; 87040; 87045; 87070; 87077; 87086; 87186; 87205; 87340; 87427; 87449; 87493; 87899; 92526; 92610; 93005; 93306; 93312; 94002; 94003; 94760; 94761; 97110; 97116; 97163; 97167; 97530; 97535; 99291; C1750; C1751; C9113; G8978-GP; G8979-GP; G8980-GP; G8987-GO; G8988-GO; G8996-GN; G8997-GN; G8998-GN; J0456; J0696; J1205; J1327; J1644; J1650; J1815; J1940; J2250; J2370; J2765; J2916; J3010; J3370; J3480; J3490; J7060; P9016; Q4081

== ENCOUNTER → 2016-11-09 | Outpatient (CLI) | payer MEDICARE, BC ==
[~2016-11-09] MED LIST changes: +AMBIEN PO; +AMLODIPINE BESYL5 MG PO; +ARICEPT5 MG PO; +ASPIRIN81 M2 PO; +ATROVENT NASAL15 ML; +CARDIZEM60 M1 PO; +DONEPEZIL HCL10 MG PO; +ELIQUIS2.5 MG PO; +FAMOTIDINE PO; +FLOMAX0.4 M1 PO; +KCL PO; +LIPITOR20 MG PO; +LOPRESSOR PO; +MULTIVITAMINS1 EAC3 PO; +PATIENT'S PHARMACY; +POLYSACC IRON150 MG PO; +PROAIR HFA8.5 GM INH; +PROTONIX PO; +RENVELA800 MG PO; +SIMVASTATIN20 MG PO; +TYLENOL325 M1 PO; +ZOCOR-BORROW, D10 MG PO
[2016-11-09 15:10] LABS: URINE APPEARANCE TURBID; URINE BILIRUBIN NEG (NEG); URINE BLOOD 2+ (NEG); URINE COLOR YELLOW; URINE GLUCOSE NEG (NEG); URINE KETONE NEG (NEG); URINE LEUKOCYTE ESTERASE 3+ (NEG); URINE NITRATE NEG (NEG); URINE PH 5.5 (5-8); URINE PROTEIN 2+ (NEG); URINE SPECIFIC GRAVITY 1.012 (1.003-1.035); URINE UROBILINOGEN 0.2 MG/DL (NEG)
[2016-11-09 15:14] LABS: URBCS1 AUWI 25-50 /[HPF] (0-2); URINE BACTERIA AUWI 2+ (NEGATIVE); URINE SQUAMOUS EPITHELIAL CELL OCC /[HPF]; UWBCS1 AUWI INNUM (0-5)
[2016-11-09 15:38] LABS: URINE SOURCE CLEAN CATCH
== END | disposition home or self-care (01) ==
LOC: CLAB 13:54
PROVIDERS: Internal Medicine
DX: R33.8 Other retention of urine (principal); N35.9 Urethral stricture, unspecified
CPT/HCPCS: 81003; 87086

== ENCOUNTER 2016-11-11 08:20 | Emergency (ER) | payer MEDICARE, BC ==
[~2016-11-11] VITALS: Ht 175.3 cm; Wt 74.8 kg
--- NOTE | ~2016-11-11 | EKG ---
PATIENT: KELLY CHENG UNIT #: [id number] Ventricular Rate: 67 BPM Atrial Rate: 67 BPM P-R Interval: 156 ms QRS Duration: 96 ms Q-T Interval: 418 ms QTC Calculation(Bezet): 441 ms P [place]: 11 degrees Calculated R [place]: 16 degrees Calculated T [place]: 64 degrees Diagnosis Line: Sinus rhythm with Premature atrial complexes Diagnosis Line: Minimal voltage criteria for LVH, may be normal Diagnosis Line: variant Diagnosis Line: Borderline ECG Diagnosis Line: When compared with ECG of 07-SEP-2016 06:26, Diagnosis Line: Premature atrial complexes are now Present Diagnosis Line: Confirmed by SYD MCCLURE MD ([id number]) on 11/11/2016 Diagnosis Line: 7:22:50 PM INTERPRETING MD: REN ALTAMIRANO
--- NOTE | ~2016-11-11 | CR72 ---
[facility] A Service of [facility] & [facility] RADIOLOGY TEXT RESULTS PATIENT: KELLY CHENG LOCATION: [facility] : 38 UNIT #: [id number] AGE: [address]: Timothy Wilson MD SEX: M ORDER DR: [id number] [facility] [address] [place], [place] [address] [id number] MR#: [id number] Acc #: [id number] NAME: KELLY CHENG. : 1940 SEX: M STUDY DATE/TIME: 11/11/2016 8:51 UNIT: [facility] ROOM: STUDY DESCRIPTION: CR Chest Single View Portable Attending Physician: Timothy Wilson M.D. Ordering Physician: Ed Doctor [id number] [facility] Primary Care Physician: Janine Stanley M.D. MEDICAL IMAGING REPORT This report is preliminary unless electronic signature is present EXAM Portable chest x-ray, 11/11/2016 HISTORY Shortness of air, chest pain and cough for one day. Prior history of atrial fibrillation. COMPARISON 09/07/2016 FINDINGS Supine radiograph of the abdomen is presented. Interval removal of enteric tube and right internal jugular central venous catheter. Heart remains upper limits of normal to borderline enlarged in size. Mediastinal contours are stable. The lungs well inflated. Underlying vascular congestion stable to slightly more pronounced than on prior examination. Abnormal interstitial prominence in the kae-bq-zxcey lung zones with patchy airspace densities at the bilateral lung bases and a small left pleural effusion. Effusion increased from prior study. Constellation of findings most in keeping with moderate pulmonary edema, likely cardiogenic, with interstitial airspace and left pleural space components. Less likely would be bibasilar pneumonia. There is some relatively dense opacification in the left retrocardiac region favored to reflect combination of pleural fluid and underlying airspace disease. The uppermost lung zones are clear and there is no pneumothorax. Dictated by... Giacomo Huffman M.D. THIS IS AN ELECTRONICALLY VERIFIED REPORT Giacomo Huffman M.D. at 11/11/2016 1:29 PM MARCI/yvette [facility] A Service of [facility] & [facility] RADIOLOGY TEXT RESULTS PATIENT: KELLY CHENG LOCATION: [facility] : 38 UNIT #: [id number] AGE: [address]: Timothy Wilson MD SEX: M ORDER DR: TD: 11/11/2016 12:02 JOB #: [id number] MEDICAL IMAGING REPORT Page 1 of 1 COPY
[~2016-11-11 08:20] MED LIST changes: -AMBIEN PO; -ARICEPT5 MG PO; -ASPIRIN81 M2 PO; -CARDIZEM60 M1 PO; -FAMOTIDINE PO; -FLOMAX0.4 M1 PO; -KCL PO; -LIPITOR20 MG PO; -MULTIVITAMINS1 EAC3 PO; -PATIENT'S PHARMACY; -POLYSACC IRON150 MG PO; -PROTONIX PO; -RENVELA800 MG PO; -TYLENOL325 M1 PO; -ZOCOR-BORROW, D10 MG PO
[2016-11-11 09:19] LABS: POC - CKMB <1.0 ng/mL (0.0-7.9); POC - TROPONIN <0.05 ng/mL (<=0.05)
[2016-11-11 09:48] LABS: BASOPHIL% 0.8 % (0-2.5); HEMATOCRIT 30.1 % (38.0-50.0); HEMOGLOBIN 9.7 gm/dL (13.0-16.0); LYMPHOCYTE% 27.7 % (17.0-45.0); MEAN CELL VOLUME 97.6 FL (83-96); MEAN CORPUSCULAR HEMOGLOBIN 31.4 PG (28-34); MEAN CORPUSCULAR HGB CONC 32.1 g/dL (30-36); MONOCYTE# 0.5 X10e3 (0-1.0); MONOCYTE% 12.6 % (3.0-12.0); NEUTROPHIL# 2.1 X10e3 (1.5-7.1); NEUTROPHIL% 57.9 % (40-75); PLATELET COUNT 115 X10e3 (140-420); RED BLOOD COUNT 3.09 X10e (3.90-5.60); RED CELL DISTRIBUTION WIDTH 20.1 % (11.0-15.5); WHITE BLOOD COUNT 3.7 X10e3 (4.0-10.5)
[2016-11-11 09:50] LABS: DIFF IND NO
[2016-11-11 10:36] LABS: POC - CKMB <1.0 ng/mL (0.0-7.9); POC - TROPONIN <0.05 ng/mL (<=0.05)
[2016-11-11 10:44] LABS: ALBUMIN SERUM 3.6 g/dL (3.5-5.0); BILIRUBIN, DIRECT 0.1 mg/dL (0.0-0.2); BILIRUBIN,INDIRECT 0.5 mg/dL (0.0-0.9); BILIRUBIN,TOTAL 0.6 mg/dL (0.2-2.0); BUN/CREATININE RATIO 13.33; CREATININE SERUM 1.8 mg/dL (0.6-1.4); GLOM FILT RATE Estimated 35.3 mL/min (>60); POTASSIUM 4.6 mmol/L (3.5-5.1); PROTEIN TOTAL SERUM 6.9 g/dL (6.0-8.3)
[2016-11-11 10:48] LABS: URINE SOURCE CLEAN CATCH
[2016-11-11 10:55] LABS: URINE APPEARANCE TURBID; URINE BILIRUBIN NEG (NEG); URINE BLOOD 2+ (NEG); URINE COLOR YELLOW; URINE GLUCOSE NEG (NEG); URINE KETONE NEG (NEG); URINE LEUKOCYTE ESTERASE 3+ (NEG); URINE NITRATE NEG (NEG); URINE PROTEIN 2+ (NEG); URINE SPECIFIC GRAVITY 1.012 (1.003-1.035); URINE UROBILINOGEN 0.2 MG/DL (NEG)
[2016-11-11 10:58] LABS: CULTURE INDICATED? YES; U HYALINE CASTS AUWI 0-2 /[LPF]; URINE BACTERIA AUWI 4+ (NEGATIVE); URINE SQUAMOUS EPITHELIAL CELL NONE SEEN /[HPF]; UWBCS1 AUWI INNUM (0-5)
== END 2016-11-11 12:52 | disposition home or self-care (01) ==
LOC: CED 08:20
PROVIDERS: Emergency Medicine
DX: N30.00 Acute cystitis without hematuria (principal); R53.1 Weakness; R53.83 Other fatigue; R06.02 Shortness of breath; I48.91 Unspecified atrial fibrillation; Z88.8 Allergy status to other drugs, medicaments and biological substances; Z88.1 Allergy status to other antibiotic agents; Z79.899 Other long term (current) drug therapy
CPT/HCPCS: 36415; 71010; 80048; 80076; 81003; 82553; 83605; 83880; 84484; 85025; 87040; 87086; 93005; 99285

== ENCOUNTER 2016-12-16 10:24 | Inpatient (IN) | payer MEDICARE, BC ==
[~2016-12-16] VITALS: Ht 172.7 cm; Wt 72.8 kg
--- NOTE | ~2016-12-16 | HP ---
Unit #: [id number] #: [id number] Patient: KELLY CHENG [id number] [address] [address] [id number] I MR#: [id number] NAME: KELLY CHENG. ROOM: 329 Age: 76 Sex: M Admission Date: 12/16/2016 : 1940 Attending Physician: Cuba Augustine M.D. Primary Care Physician: Janine Stanley M.D. HISTORY AND PHYSICAL ADMISSION DIAGNOSES 1. GI bleed. 2. Symptomatic anemia. 3. History of paroxysmal A-fib, was on chronic anticoagulation. 4. CKD. 5. History of colonic polyps, status post resection. 6. History of Hep-C. 7. History of BPH. 8. History of obstructive sleep apnea. 9. Hypertension. 10. History of pericardial effusions. HISTORY OF PRESENT ILLNESS Mr. Cheng is a 76-year-old gentleman, patient of Dr. Roel Stanley, who apparently was having home physical therapy this morning when he all of a sudden became very dizzy and increasingly weak. Called primary care physician's office and was directed to come to the emergency room. In the emergency room, he was found severely anemic with the hemoglobin of 6. He denies any chest pain, denies any headache, dizziness, denies any nausea, vomiting, diarrhea or abdominal pain, denies any fever, chills or syncope. REVIEW OF SYSTEMS 12-point review of systems on this patient is basically negative except as above. PAST MEDICAL HISTORY As above in admission diagnosis. PAST SURGICAL HISTORY Significant for: 1. Cholecystectomy. 2. Tonsillectomy. 3. Appendectomy. 4. Bilateral cataract removal. 5. TURP. ALLERGIES She is allergic to Augmentin, sulfa and hydralazine. MEDICATIONS Home medications include: 1. Klor-Con. 2. Lipitor. Unit #: [id number] #: [id number] Patient: KELLY CHENG 3. Lopressor 50 mg daily. 4. Iron pills daily. 5. Pepcid daily. 6. Renvela daily. 7. Tylenol. 8. Multivitamins. 9. Ambien. 10. Aricept. 11. Aspirin. 12. Cardizem. 13. Flomax. SOCIAL HISTORY No current history of tobacco, alcohol or illicit drugs. FAMILY HISTORY Unremarkable. PHYSICAL EXAMINATION GENERAL: Patient is a 76-year-old gentleman in no acute distress. VITAL SIGNS: BP 144/72, heart rate 78, respirations 16, temperature 99.6. HEENT: Head is atraumatic. Pupils equal, round, reactive to light and accommodation. Extraocular muscles intact. Oropharynx clear. NECK: Supple. No masses, no JVD, no bruits. CHEST: Diminished bilaterally. CARDIOVASCULAR: S1, S2, no murmurs. ABDOMEN: Soft, nontender, nondistended. EXTREMITIES: Lower extremities without any cyanosis, clubbing or edema. NEUROLOGIC: Patient without any focal deficits. LABS AND DIAGNOSTICS LABORATORY: Chemistry significant for BUN and creatinine 31 and 2.0, GFR around 31 which is around baseline. Chloride and bicarb 114 and 18. HEMATOLOGY: Again, significant for H and H 6.4 and 20.6, white count 3.4, platelets 164. UA significant for leukocyte esterase, 2+ protein and numerous WBCs. ASSESSMENT AND PLAN 1. GI bleed with symptomatic anemia, getting transfused 2 units. Will give 20 of Lasix in between units. Consult Dr. White, started on IV PPI b.i.d. Keep NPO until Dr. White evaluates. 2. History of paroxysmal atrial fib. Continue rate control with the beta adilene. He tells me that he was on Eliquis. However, it is not listed on his home medication list. Anyhow, will stop the anticoagulation for now, will consult Dr. Lafleur and Dr. Galan since had been seen by them before. 3. CKD with mild metabolic acidosis. Will monitor chemistry closely. Will consider nephrology evaluation. 4. History of BPH now with UTI. Will start on Levaquin and ask the pharmacy to dose. Follow up on urine culture. 5. Hypertension. Continue home meds. 6. BPH, status post TURP. 7. History of colon polyps. 8. History of hepatitis C. 9. Obstructive sleep apnea. Unit #: [id number] #: [id number] Patient: KELLY CHENG 10. History of pericardial effusion with questionable CHF. Continue per cardiology. 11. GI and DVT prophylaxis. Continue PPI. Avoid anticoagulation secondary to severe symptomatic anemia with GI bleed which looks like it had been chronic. Dictated by Anson Craig/freddy TD: 12/17/2016 06:45 JOB #: [id number] HISTORY AND PHYSICAL Page 1 of 1 X Cuba Augustine MD HISTORY AND PHYSICAL
--- NOTE | ~2016-12-16 | DS ---
Unit #: [id number] #: [id number] Patient: KELLY CHENG [id number] [address] [place], [place] [address] [id number] I MR#: [id number] NAME: KELLY CHENG. ROOM: 329 Age: 76 Sex: M Admission Date: 12/16/2016 : 1940 Discharge Date: 12/20/2016 Attending Physician: Cuba Augustine M.D. Primary Care Physician: Janine Stanley M.D. DISCHARGE SUMMARY CONSULTATION DURING HOSPITALIZATION Dr. Anthony White from [facility], Dr. Lafleur from [facility]. PROCEDURE PERFORMED DURING HOSPITALIZATION Esophagogastroduodenoscopy which shows severe duodenitis along with a superficial duodenal ulcer, chronic appearing gastritis, esophagitis, hiatal hernia, nonobstructing esophageal ring. DIAGNOSTIC STUDIES LABORATORY RESULTS: Lab work upon discharge; CBC shows WBC 5.9, hemoglobin 8.8, hematocrit 27.5, and platelet count of 157. CMP shows sodium 140, potassium 4.6, chloride 114, BUN 27, creatinine 1.9, albumin 3.1. Urine culture is no growth. On admission, the patient's hemoglobin was 6.4. HOSPITAL COURSE Mr. Kelly Cheng in a 76-year-old male, who was admitted by my colleague, Dr. Augustine with GI bleed and symptomatic anemia. The patient was having physical therapy when he became dizzy and increasingly weak. The patient was advised to come to the ER and was found to have low hemoglobin of 6.4. The patient is on Eliquis for atrial fibrillation that was held. The patient received packed RBC transfusion. Dr. White was consulted and the patient had EGD done, findings are as above. The patient received IV Protonix during hospitalization which is being changed to p.o. The patient is stable from that aspect at this time and is being discharged home. He will need colonoscopy done which is to be scheduled on as an outpatient. The patient is off Eliquis, because he will need biopsies. The patient does have some mild renal insufficiency that needs to be observed as an outpatient. Get the BMP done in a week or so. No Aleve, ibuprofen, or any other NSAIDs over the counter. Plan of care has been discussed with the patient at length. DISCHARGE PHYSICAL EXAMINATION VITAL SIGNS: Blood pressure is 152/83, respiratory rate 16, pulse is 76, temperature 98.7, oxygen saturations 97%. HEAD: Normocephalic. CHEST: Fair air entry. CVS: S1 and S2 positive. Regular rhythm. ABDOMEN: Soft. Unit #: [id number] #: [id number] Patient: KELLY CHENG DISCHARGE INSTRUCTIONS 1. The patient is being discharged home in stable condition. 2. Medication as per med rec. 3. Follow up with primary care provider in 1 week. 4. Follow up with Dr. White for colonoscopy on . CBC to be done in 3 to 4 days. DISCHARGE MEDICATIONS Protonix 40 mg p.o. b.i.d., potassium 40 mEq b.i.d., Renvela 800 mg q.i.d., aspirin 81 mg daily, multivitamin daily, Niferex 150 mg daily, Lipitor 10 mg daily, Aricept 10 mg daily, Lopressor 50 mg b.i.d., Cardizem 60 mg q.i.d., Ambien 2.5 mg q.h.s. p.r.n., Tylenol 650 q.4 p.r.n., Flomax 0.4 mg q.a.m. Dictated by... Seema Jefferson M.D. ZEINA/alison TD: 12/22/2016 17:29 JOB #: [id number] DISCHARGE SUMMARY Page 1 of 1 X Seema Jefferson MD X DISCHARGE SUMMARY
--- NOTE | ~2016-12-16 | CO ---
Unit #: [id number] #: [id number] Patient: KELLY CHENG [id number] [address] [place], [place] [address] [id number] I MR#: [id number] NAME: KELLY CHENG. ROOM: 329 Age: 76 Sex: M Admission Date: 12/16/2016 : 1940 Attending Physician: Cuba Augustine M.D. Primary Care Physician: Janine Stanley M.D. Consultation Date: 12/17/2016 CONSULTATION REPORT PRIMARY CARE PHYSICIAN Janine Stanley M.D. REASON FOR CONSULTATION Severe anemia. HISTORY OF PRESENTING ILLNESS Mr. Cheng is a 76-year-old gentleman, who was very dizzy, found to be severely anemic and was brought to the hospital for transfusion as well as evaluation. He has been on Eliquis, last dose was yesterday. He denies any history of black stools. He denies any history of nausea or vomiting. Stool has been dark however on last few days. He has no previous history of ulcer disease. Has history of colon polyps. Last colonoscopy was 2013. Denies any abdominal pain also at this time. REVIEW OF SYSTEMS Complete 10-point review of systems was done, which is unremarkable other than as mentioned above. PAST MEDICAL HISTORY Significant for atrial fibrillation, on chronic anticoagulation; also with history of COPD and sleep apnea. SOCIAL HISTORY Nonsmoker. Nonalcoholic. MEDICATIONS At home included Eliquis, Ambien, Aricept, aspirin, Pepcid, Lopressor, Lipitor, and Klor-Con. FAMILY HISTORY No history of colon cancer in the family. PHYSICAL EXAMINATION VITAL SIGNS: Stable. Afebrile. GENERAL: No acute distress. HEENT: Pupils are equal and reactive. Sclerae anicteric. Oral mucosa moist. NECK: No JVD. No lymphadenopathy. CHEST: Few scattered rhonchi bilaterally. CARDIOVASCULAR: Regular rate and rhythm. No murmurs. ABDOMEN: Soft, nontender, and nondistended. No organomegaly or ascites. EXTREMITIES: Without clubbing, cyanosis, or edema. NEUROLOGICAL: Intact. Unit #: [id number] #: [id number] Patient: KELLY CHENG SKIN: Warm and dry. DIAGNOSTIC STUDIES LABORATORY RESULTS: Chemistries show BUN and creatinine are 31 and 2.0. Transferrin saturation of 12; iron levels of 38, both significantly low. Hemoglobin of 6.4 on arrival and after 2 units of transfusion 8.8, normal platelet count and normal white count. PLAN The patient will continue watch H and H, transfuse as necessary. We will continue PPI therapy. EGD for evaluation. Further recommendations to follow. Thank you, Dr. Augustine, for this interesting consult. We will follow along. Dictated by... Anson Orlando/alison TD: 12/17/2016 17:13 JOB #: [id number] CONSULTATION REPORT Page 1 of 1 X Anthony White MD X CONSULTATION REPORT
--- NOTE | ~2016-12-16 | CR72 ---
[facility] A Service of [facility] & [facility] RADIOLOGY TEXT RESULTS PATIENT: KELLY CHENG LOCATION: [facility] 329- : 38 UNIT #: [id number] AGE: [address]: Cuba Augustine MD SEX: M ORDER DR: [id number] [facility] [address] [place], [place] [address] [id number] I MR#: [id number] Acc #: [id number] NAME: KELLY CHENG. : 1940 SEX: M STUDY DATE/TIME: 12/16/2016 11:31 UNIT: [address] ROOM: [facility] STUDY DESCRIPTION: CR Chest Single View Portable Attending Physician: Cuba Augustine M.D. Ordering Physician: Luis Meyer M.D. Primary Care Physician: Janine Stanley M.D. MEDICAL IMAGING REPORT This report is preliminary unless electronic signature is present EXAM Chest x-ray 12/16/2016 HISTORY 76-year-old male in the ED complaining of new onset weakness today. He has a history of atrial fibrillation and hypertension. FINDINGS Mild interstitial edema present on 11/11/2016 has improved. There is a small left pleural effusion today. Bilateral pleural effusions have decreased since 11/11/2016. Lungs otherwise clear. Heart size and pulmonary vascularity are normal. IMPRESSION Improved mild interstitial edema and bilateral pleural effusions since 11/11/2016. Dictated by... Narayan Marmolejo M.D. THIS IS AN ELECTRONICALLY VERIFIED REPORT Narayan Marmolejo M.D. at 12/17/2016 9:50 PM TYREEW/heladio TD: 12/16/2016 21:59 JOB #: [id number] MEDICAL IMAGING REPORT Page 1 of 1 COPY
--- NOTE | ~2016-12-16 | EKG ---
PATIENT: KELLY CHENG UNIT #: [id number] Ventricular Rate: 76 BPM Atrial Rate: 76 BPM P-R Interval: 154 ms QRS Duration: 94 ms Q-T Interval: 378 ms QTC Calculation(Bezet): 425 ms P [place]: 24 degrees Calculated R [place]: 32 degrees Calculated T [place]: 62 degrees Diagnosis Line: Normal sinus rhythm Diagnosis Line: Nonspecific ST abnormality Diagnosis Line: Borderline ECG Diagnosis Line: When compared with ECG of 11-NOV-2016 08:46, Diagnosis Line: Premature atrial complexes are no longer Present Diagnosis Line: Confirmed by SYD MCCLURE MD ([id number]) on 12/18/2016 Diagnosis Line: 3:23:26 PM INTERPRETING MD: REN ALTAMIRANO
--- NOTE | ~2016-12-16 | CO ---
Unit #: [id number] #: [id number] Patient: KELLY CHENG [id number] [address] [place], [place] [address] [id number] I MR#: [id number] NAME: KELLY CHENG. ROOM: 329 Age: 76 Sex: M Admission Date: 12/16/2016 : 1940 Attending Physician: Cuba Augustine M.D. Primary Care Physician: Janine Stanley M.D. Consultation Date: 12/17/2016 CONSULTATION REPORT PRIMARY CARE DOCTOR Dr. Stanley. REASON FOR CONSULTATION Management of anticoagulation. The patient has paroxysmal atrial fibrillation and has been on Eliquis. HISTORY OF PRESENT ILLNESS This is a 76-year-old white male with history of paroxysmal atrial fibrillation. He has been on Eliquis, which was recently started within the last month as an outpatient by Dr. Galan. He has a history of anemia in the past, but it has most recently been stable. He has hypertension, COPD, obstructive sleep apnea, has severe mitral regurgitation, EF of 50% to 55%, chronic kidney disease, BPH. 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 Also ruled in to have a non-STEMI. The family opted for medical management at that time. He also has chronic diastolic congestive heart failure and dementia. The patient was brought in to the emergency room after he had a spell where he was having outpatient physical therapy at his home during their session, and he stood up and he became very weak, lightheaded, and short of breath. They called the EMS. They brought him in. He was found to have a hemoglobin of 6.4. His creatinine is 2.0. WBCs are 3.4, platelets 164. He also was positive for the urinary tract infection. The patient denies any chest pain; pain in his neck, bilateral jaws, shoulders, arms, or elbow. He denies any palpitations. No shortness of breath. No cough, fever, or chills. No nausea, vomiting, or diarrhea. However, the patient has been having spells of diarrhea over the past few weeks, but it had eased off recently. In the emergency room, the patient's blood pressure was found to be stable with a blood pressure of 161/84, heart rate 78, respirations 16, temperature 97.7, O2 saturations 97% on room air. His initial cardiac enzymes are negative. His EKG shows normal sinus rhythm, nothing acute. His chest x-ray shows some mild interstitial edema. Cardiology has been consulted to assist with evaluation and management. PAST MEDICAL HISTORY 1. Paroxysmal atrial fibrillation, on Eliquis. 2. Hypertension. 3. Hyperlipidemia. 4. COPD, obstructive sleep apnea. 5. On 08/21/2016, 2D echo, LVEF of 50% to 55% with mild aortic regurgitation, severe mitral regurgitation with mild tricuspid Unit #: [id number] #: [id number] Patient: KELLY CHENG regurgitation with elevated RVSP of 37 mmHg. 6. In 2008, he had an adenosine Cardiolite stress test that showed no ischemia, ejection fraction 50%. 7. Chronic kidney disease. 8. Anemia. 9. BPH. 10. Admission from 08/29/2016 to 09/13/2016 at [facility] for acute hypoxic respiratory failure, pneumonia, and he was status post intubation. 11. Eov-WT-igjifrbx TX. 12. 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 13. History of diastolic congestive heart failure. 14. Dementia. 15. Hepatitis C. 16. Colon polyps. 17. Reformed smoker. 18. History of pericarditis, questionable secondary to hydralazine. PAST SURGICAL HISTORY 1. Cholecystectomy. 2. Tonsillectomy. 3. TURP for BPH. 4. Appendectomy. 5. Bilateral cataract extraction. 6. Prostate surgery. HOME MEDICATIONS Klor-Con 40 mEq p.o. b.i.d., Lipitor 10 mg p.o. daily, Zocor 10 mg p.o. daily, metoprolol 50 mg p.o. t.i.d., iron polysaccharide complex 150 mg p.o. in the morning, Pepcid 20 mg p.o. daily in the morning, Renvela 800 mg p.o. q.i.d., Tylenol 650 mg every 4 hours p.r.n. for pain, multivitamin 1 tablet p.o. daily, Ambien 2.5 mg p.o. at bedtime, Aricept 10 mg p.o. daily in the morning, aspirin 81 mg daily, diltiazem 60 mg p.o. q.i.d., Flomax 0.4 mg p.o. every morning, Eliquis 2.5 mg b.i.d., started on 11/18/2016, hydrochlorothiazide 25 mg p.o. daily, started on 11/18/2016. ALLERGIES 1. Augmentin, Bactrim. 2. Hydralazine. 3. Namzaric. SOCIAL HISTORY The patient lives with his spouse. He quit smoking over 30 years ago. No alcohol or illicit drug abuse. FAMILY HISTORY Noncontributory. REVIEW OF SYSTEMS See details in HPI. PHYSICAL EXAMINATION GENERAL: Mr. Cheng is a 76-year-old white male, in no acute respiratory distress. He is awake, alert, and answers simple questions appropriately most times. VITAL SIGNS: Blood pressure is 134/63, heart rate 60, respirations 16, temperature 97.8, O2 saturations 94% on room air. NECK: Trachea midline. No thyromegaly or lymphadenopathy. Normal carotid upstrokes. No jugular venous distention. Unit #: [id number] #: [id number] Patient: KELLY CHENG HEART: S1 and S2. Regular to irregular. Systolic murmur at left sternal border. LUNGS: Few faint fine rales in bases. ABDOMEN: Slightly obese, nontender. EXTREMITIES: Pedal pulses are palpable. 1+ pedal edema. DIAGNOSTIC STUDIES LABORATORY RESULTS: Glucose is 100, BUN 27, creatinine 1.9, EGFR is 33, sodium 137, potassium 4.7, chloride 109, CO2 of 19, calcium is 9.1, total protein 6.7, albumin 3.5, bilirubin total 0.5, AST is 28, ALT 21, alkaline phosphatase is 54. Today's labs; WBCs 4.8, hemoglobin is up to 8.8, hematocrit 27.0, and platelets is 168. On admission, the patient's hemoglobin 6.4 with hematocrit of 20.6, received 2 units of packed red blood cells. Urinalysis shows 3+ leukocyte esterase, 2+ protein, 0.2 urobilinogen, 2+ blood, 10-25 rbc's, and innumerable wbc's. Urine cultures pending. IMAGING STUDIES: Chest x-ray shows improved mild interstitial edema and bilateral pleural effusions since 11/21/2016. EKG shows normal sinus rhythm, ventricular rate 75 beats per minute, slow R-wave progression, low voltage in inferior leads, left ventricular hypertrophy, left atrial abnormality, some nonspecific ST-T wave abnormalities in anterolateral leads. IMPRESSION 1. Acute symptomatic anemia, questionable blood loss. 2. Paroxysmal atrial fibrillation, has been on Eliquis and aspirin. 3. Urinary tract infection. 4. Acute on chronic kidney disease. 5. LVEF of 50% to 55%, severe mitral regurgitation, mild aortic regurgitation on 2D echo on 08/21/2016. 6. History of coronary artery disease, previous non-STEMI in 09/2016, medical management. 7. Hypertension. 8. Hyperlipidemia. 9. Chronic diastolic congestive heart failure. 10. Hepatitis C. 11. Dementia. 12. Chronic obstructive pulmonary disease, obstructive sleep apnea. PLAN 1. The patient since admission has received 2 units of packed red blood cells, followed up some IV Lasix. On exam, there are no signs or symptoms of acute congestive heart failure or unstable angina. His cardiac enzymes so far have been negative. 2. The patient had 2 units of packed red blood cells and his hemoglobin is up to 7.8. Dr. White has been consulted. 3. The patient remains in normal sinus rhythm, also continue on med of metoprolol and Cardizem. 4. At this point, hold his Eliquis and aspirin. 5. GI has been consulted, Dr. White, to evaluate if he needs some type of scopes. 6. The patient has a CHADS2 score of 2. We will discuss the option of Unit #: [id number] #: [id number] Patient: KELLY CHENG stopping continuing on the anticoagulation after GI evaluation. 7. On exam, there are no signs or symptoms of acute congestive heart failure or unstable angina. 8. Also, we will stop his hydrochlorothiazide because of his elevated creatinine of 2.0. We will monitor closely. 9. Further recommendations pending per Dr. Lafleur. Dictated by... Jessica Locke A.P.R.N. for Anson Sotomayor/alison TD: 12/18/2016 06:03 JOB #: [id number] CONSULTATION REPORT Page 1 of 1 X Jessica Locke APRN CONSULTATION REPORT
--- NOTE | ~2016-12-16 | OR ---
Unit #: [id number] #: [id number] Patient: KELLY CHENG [id number] [address] [address] [id number] I MR#: [id number] NAME: KELLY CHENG. ROOM: [facility] Date of Procedure: 12/17/2016 Admission Date: 12/16/2016 Surgeon: Anthony White M.D. : 1940 Attending Physician: Cuba Augustine M.D. Primary Care Physician: Janine Stanley M.D. OPERATIVE REPORT PROCEDURE PERFORMED Esophagogastroduodenoscopy to descending duodenum. INDICATIONS FOR PROCEDURE GI bleeding, anemia of acute blood loss. MEDICATIONS Monitored anesthesia. POSTOPERATIVE FINDINGS 1. Severe duodenitis along with superficial duodenal ulcer. 2. Chronic appearing gastritis. 3. Esophagitis. 4. Hiatal hernia, nonobstructing esophageal ring. 5. The patient took Eliquis yesterday. No biopsies or dilation was carried out. PLAN Continue aggressive PPI therapy. DESCRIPTION OF PROCEDURE The patient was explained of the procedure risks and benefits along with risks and benefits of anesthesia. He was brought to the endoscopy room. Propofol anesthesia was given. Bite block was placed. The scope was passed down the mouth into esophagus, stomach, duodenum, and distal duodenum. Findings as described. No biopsies taken. Gently, I pulled the scope out of the patient's mouth. He tolerated it well. No major complications were seen. Dictated by... Anson Orlando/alison TD: 12/17/2016 17:34 JOB #: [id number] Unit #: [id number] #: [id number] Patient: KELLY CHENG OPERATIVE REPORT Page 1 of 1 X Anthony White MD X PROCEDURE OPERATIVE NOTE
[2016-12-16 11:58] LABS: BASOPHIL% 0.8 % (0-2.5); EOSINOPHIL# 0.1 X10e3 (0-0.7); EOSINOPHIL% 2.6 % (0.0-7.0); HEMATOCRIT 20.6 % (38.0-50.0); LYMPHOCYTE# 0.8 X10e3 (1.0-3.5); LYMPHOCYTE% 24.2 % (17.0-45.0); MEAN CELL VOLUME 101.2 FL (83-96); MEAN CORPUSCULAR HEMOGLOBIN 31.2 PG (28-34); MEAN CORPUSCULAR HGB CONC 30.8 g/dL (30-36); MEAN PLATELET VOLUME 7.1 FL (6.5-11.5); MONOCYTE# 0.4 X10e3 (0-1.0); NEUTROPHIL% 60.4 % (40-75); PLATELET COUNT 164 X10e3 (140-420); RED BLOOD COUNT 2.04 X10e (3.90-5.60); RED CELL DISTRIBUTION WIDTH 17.9 % (11.0-15.5); WHITE BLOOD COUNT 3.4 X10e3 (4.0-10.5)
[2016-12-16 12:01] LABS: DIFF IND YES; HEMOGLOBIN 6.4 gm/dL (13.0-16.0)
[2016-12-16 12:15] LABS: ALBUMIN SERUM 3.5 g/dL (3.5-5.0); BILIRUBIN, DIRECT 0.1 mg/dL (0.0-0.2); BILIRUBIN,INDIRECT 0.4 mg/dL (0.0-0.9); BILIRUBIN,TOTAL 0.5 mg/dL (0.2-2.0); BUN/CREATININE RATIO 15.5; CALCIUM SERUM 8.8 mg/dL (8.4-10.2); POTASSIUM 5.1 mmol/L (3.5-5.1); PROTEIN TOTAL SERUM 6.7 g/dL (6.0-8.3)
[2016-12-16 12:25] LABS: ANISOCYTOSIS SL; PLATELET ESTIMATE NORMAL (NORMAL)
[2016-12-16] MEDS ORDERED: KCL PO (13:01)
[2016-12-16] MEDS ORDERED: ZOCOR-BORROW, D10 MG PO (13:02)
[2016-12-16] MEDS ORDERED: LIPITOR20 MG PO (13:02)
[2016-12-16] MEDS ORDERED: LOPRESSOR PO (13:04)
[2016-12-16] MEDS ORDERED: FAMOTIDINE PO (13:05)
[2016-12-16] MEDS ORDERED: POLYSACC IRON150 MG PO (13:05)
[2016-12-16] MEDS ORDERED: TYLENOL325 M1 PO (13:06)
[2016-12-16] MEDS ORDERED: RENVELA800 MG PO (13:06)
[2016-12-16] MEDS ORDERED: ASPIRIN81 M2 PO (13:07)
[2016-12-16] MEDS ORDERED: MULTIVITAMINS1 EAC3 PO (13:07)
[2016-12-16] MEDS ORDERED: AMBIEN PO (13:07)
[2016-12-16] MEDS ORDERED: ARICEPT5 MG PO (13:07)
[2016-12-16] MEDS ORDERED: PATIENT'S PHARMACY (13:08)
[2016-12-16] MEDS ORDERED: FLOMAX0.4 M1 PO (13:08)
[2016-12-16] MEDS ORDERED: CARDIZEM60 M1 PO (13:08)
[2016-12-16 14:59] LABS: URINE SOURCE CLEAN CATCH
[2016-12-16 15:08] LABS: URINE APPEARANCE TURBID; URINE BILIRUBIN NEG (NEG); URINE BLOOD 2+ (NEG); URINE COLOR YELLOW; URINE GLUCOSE NEG (NEG); URINE KETONE NEG (NEG); URINE LEUKOCYTE ESTERASE 3+ (NEG); URINE NITRATE NEG (NEG); URINE PH 5.5 (5-8); URINE PROTEIN 2+ (NEG); URINE SPECIFIC GRAVITY 1.011 (1.003-1.035); URINE UROBILINOGEN 0.2 MG/DL (NEG)
[2016-12-16 15:10] LABS: CULTURE INDICATED? YES; URINE BACTERIA AUWI NEG (NEGATIVE); URINE SQUAMOUS EPITHELIAL CELL NONE SEEN /[HPF]; UWBCS1 AUWI INNUM (0-5)
[2016-12-16 22:28] LABS: HEMATOCRIT 23.9 % (38.0-50.0); HEMOGLOBIN 7.8 gm/dL (13.0-16.0)
[2016-12-17 07:59] LABS: MEAN CORPUSCULAR HEMOGLOBIN 30.6 PG (28-34); MEAN CORPUSCULAR HGB CONC 32.7 g/dL (30-36); MEAN PLATELET VOLUME 6.9 FL (6.5-11.5); RED BLOOD COUNT 2.88 X10e (3.90-5.60); RED CELL DISTRIBUTION WIDTH 20.5 % (11.0-15.5); WHITE BLOOD COUNT 4.8 X10e3 (4.0-10.5)
[2016-12-17 08:15] LABS: MEAN CELL VOLUME 93.7 FL (83-96)
[2016-12-17 08:16] LABS: HEMOGLOBIN 8.8 gm/dL (13.0-16.0)
[2016-12-17 08:28] LABS: BUN/CREATININE RATIO 14.21; CALCIUM SERUM 9.1 mg/dL (8.4-10.2); CREATININE SERUM 1.9 mg/dL (0.6-1.4); POTASSIUM 4.7 mmol/L (3.5-5.1)
[2016-12-18 08:02] LABS: BASOPHIL% 0.4 % (0-2.5); EOSINOPHIL# 0.1 X10e3 (0-0.7); EOSINOPHIL% 2.7 % (0.0-7.0); HEMOGLOBIN 7.9 gm/dL (13.0-16.0); LYMPHOCYTE# 0.7 X10e3 (1.0-3.5); MEAN CELL VOLUME 94.1 FL (83-96); MEAN CORPUSCULAR HGB CONC 32.9 g/dL (30-36); MEAN PLATELET VOLUME 6.9 FL (6.5-11.5); MONOCYTE# 0.5 X10e3 (0-1.0); MONOCYTE% 12.7 % (3.0-12.0); NEUTROPHIL# 2.8 X10e3 (1.5-7.1); NEUTROPHIL% 67.2 % (40-75); PLATELET COUNT 147 X10e3 (140-420); RED BLOOD COUNT 2.55 X10e (3.90-5.60); RED CELL DISTRIBUTION WIDTH 20.1 % (11.0-15.5); WHITE BLOOD COUNT 4.2 X10e3 (4.0-10.5)
[2016-12-18 08:03] LABS: ALBUMIN SERUM 3.1 g/dL (3.5-5.0); BILIRUBIN,TOTAL 0.7 mg/dL (0.2-2.0); BUN/CREATININE RATIO 14.21; CALCIUM SERUM 8.8 mg/dL (8.4-10.2); CREATININE SERUM 1.9 mg/dL (0.6-1.4); POTASSIUM 4.6 mmol/L (3.5-5.1); PROTEIN TOTAL SERUM 5.9 g/dL (6.0-8.3)
[2016-12-18 08:09] LABS: DIFF IND YES
[2016-12-18 08:43] LABS: PLATELET ESTIMATE NORMAL (NORMAL)
[2016-12-19 06:06] LABS: HEMATOCRIT 23.6 % (38.0-50.0); HEMOGLOBIN 7.6 gm/dL (13.0-16.0); MEAN CELL VOLUME 95.2 FL (83-96); MEAN CORPUSCULAR HEMOGLOBIN 30.8 PG (28-34); MEAN CORPUSCULAR HGB CONC 32.3 g/dL (30-36); MEAN PLATELET VOLUME 6.7 FL (6.5-11.5); RED BLOOD COUNT 2.48 X10e (3.90-5.60); RED CELL DISTRIBUTION WIDTH 19.7 % (11.0-15.5); WHITE BLOOD COUNT 4.5 X10e3 (4.0-10.5)
[2016-12-20 05:46] LABS: HEMATOCRIT 27.5 % (38.0-50.0); HEMOGLOBIN 8.8 gm/dL (13.0-16.0); MEAN CELL VOLUME 94.9 FL (83-96); MEAN CORPUSCULAR HEMOGLOBIN 30.3 PG (28-34); MEAN PLATELET VOLUME 7.2 FL (6.5-11.5); RED BLOOD COUNT 2.9 X10e (3.90-5.60); RED CELL DISTRIBUTION WIDTH 19.7 % (11.0-15.5); WHITE BLOOD COUNT 5.9 X10e3 (4.0-10.5)
[2016-12-20] MEDS ORDERED: LOPRESSOR PO (12:44)
[2016-12-20] MEDS ORDERED: PROTONIX PO (12:45)
== END 2016-12-20 18:37 | disposition home or self-care (01) | DRG 378 ==
LOC: CED 10:24 → CEDOF 14:07 → CED 14:26 → CEDOF 14:26 → C3A PCU 20:09
PROVIDERS: Emergency Medicine; Hospitalist; Internal Medicine; Physician Assistant Medical
PROC: 30233N1 Transfusion of Nonautologous Red Blood Cells into Peripheral Vein, Percutaneous Approach (ICD-10-PCS; 2016-12-16)
PROC: 0DJ08ZZ Inspection of Upper Intestinal Tract, Via Natural or Artificial Opening Endoscopic (ICD-10-PCS; principal; 2016-12-17 16:22)
DX: K92.2 Gastrointestinal hemorrhage, unspecified (principal); D62 Acute posthemorrhagic anemia; N17.9 Acute kidney failure, unspecified; E87.2 Acidosis; I13.0 Hypertensive heart and chronic kidney disease with heart failure and stage 1 through stage 4 chronic kidney disease, or unspecified chronic kidney disease; I50.32 Chronic diastolic (congestive) heart failure; N39.0 Urinary tract infection, site not specified; I48.0 Paroxysmal atrial fibrillation; K44.9 Diaphragmatic hernia without obstruction or gangrene; Z79.01 Long term (current) use of anticoagulants; B18.2 Chronic viral hepatitis C; N40.0 Benign prostatic hyperplasia without lower urinary tract symptoms; G47.33 Obstructive sleep apnea (adult) (pediatric); N18.9 Chronic kidney disease, unspecified; Z87.891 Personal history of nicotine dependence; J44.9 Chronic obstructive pulmonary disease, unspecified; I25.2 Old myocardial infarction; E78.5 Hyperlipidemia, unspecified; F03.90 Unspecified dementia, unspecified severity, without behavioral disturbance, psychotic disturbance, mood disturbance, and anxiety; Z90.49 Acquired absence of other specified parts of digestive tract; Z86.010 Personal history of colon polyps; Z98.42 Cataract extraction status, left eye; Z98.41 Cataract extraction status, right eye; Z88.1 Allergy status to other antibiotic agents; Z88.2 Allergy status to sulfonamides; K29.80 Duodenitis without bleeding; K29.50 Unspecified chronic gastritis without bleeding
CPT/HCPCS: 36415; 36430; 71010; 80048; 80053; 80076; 81003; 82947; 85014; 85018; 85025; 85027; 86850; 86900; 86901; 86923; 87086; 93005; 97116; 97162; 97165; 97535; 99285; C9113; G8978-GP; G8979-GP; G8987-GO; G8988-GO; J1940; J1956; P9016